=== PATIENT | female | born 1995 | race Caucasian/White ===

== ENCOUNTER 2021-08-08 20:26 | Observation (INO) | payer OTHER ==
[2021-08-08] MEDS ORDERED: NALOXONE 0.4 MG/ML 1 ML VIAL IV STA (20:28)
[2021-08-08] MEDS ORDERED: SODIUM CHLORIDE 0.9% 1,000 ML IV ONE (20:28)
[2021-08-08 20:34] VITALS: RESP 18; TEMP 98.5
[2021-08-08 20:36] LABS: Glucose,Whole Blood 91 mg/dL (75-99)
--- NOTE | 2021-08-08 20:47 | ED ---
General Adult HPI - General Chief complaint: Altered Mental Status Stated complaint: Overdose Time Seen by Provider: 08/08/21 20:28 Source: police, EMS Mode of arrival: EMS - History of Present Illness Initial comments: Patient presents to the ED by ambulance for evaluation. Per EMS, patient was found unresponsive outside of a liquor store. Patient has reportedly drank half a bottle of vodka. Per EMS, the patient had agonal respirations and pinpoint pupils, so they administered 2 mg of intranasal Narcan without any change in her condition. Per EMS, the patient was also given 2 mg of IV Narcan once an IV was established, and they report that the patient's condition improved with IV Narcan. Patient is alert and agitated on arrival to the ED. Patient is not answering any questions appropriately at this time. Patient will not tell me her name or if she took any drugs/medications today. - Related Data Allergies Allergy/AdvReac Type Severity Reaction Status Date / Time Unable to Assess Allergy Verified 08/08/21 20:34 Review of Systems ROS Statement: Those systems with pertinent positive or pertinent negative responses have been documented in the HPI. ROS Other: All systems not noted in ROS Statement are negative. Limitations: ROS unobtainable due to patients medical condition Past Medical History Past Medical History: Unable to Obtain History of Any Multi-Drug Resistant Organisms: Unobtainable Past Surgical History: Unable to Obtain Past Psychological History: Unable to Obtain Past Alcohol Use History: Unable to Obtain Past Drug Use History: Unable to Obtain General Exam Limitations: altered mental status General appearance: other (Patient is alert, but intoxicated in appearance) Head exam: Present: atraumatic, normocephalic Eye exam: Present: PERRL, EOMI, other (Bilateral conjunctival injection) ENT exam: Present: mucous membranes moist Neck exam: Present: other (Trachea is in midline). Absent: tenderness Respiratory exam: Present: normal lung sounds bilaterally. Absent: respiratory distress, wheezes, rales, rhonchi, stridor Cardiovascular Exam: Present: regular rate, normal rhythm, normal heart sounds, other (Normal radial pulses bilaterally) GI/Abdominal exam: Present: soft. Absent: distended, tenderness, guarding Extremities exam: Absent: tenderness, pedal edema Back exam: Present: normal inspection Neurological exam: Present: alert, other (Patient localizes the pain in all 4 extremities; patient is moving all 4 extremities spontaneously; PERRL) Psychiatric exam: Present: agitated Skin exam: Present: warm, dry, intact, normal color Course Vital Signs 08/08/21 20:27 Temperature 98.5 F Pulse Rate 98 Respiratory 18 Rate Blood Pressure 120/98 O2 Sat by Pulse 99 Oximetry - Reevaluation(s) Reevaluation #1: 08/08/21 21:55 Case, H&P, test results and ED/EMS management were discussed with Dr. Gomez. He accepts hospital admission. He has no further recommendations at this time. 08/08/21 21:55 Patient is currently sleeping, but easily arousable. Patient continues to be breathing comfortably in the ED. EKG Findings - EKG Comments: EKG Findings:: EKG is limited secondary to motion, normal sinus rhythm, ventricular rate of 98 bpm, no definite ectopy, normal GA and QRS intervals, normal QT interval, incomplete right bundle branch block, no definite ST or T- wave abnormality Medical Decision Making - Medical Decision Making Given the patient's very high alcohol level (466), possible concomitant drug overdose and altered mental status, will admit the patient to the hospital for observation and further management as needed. Dr. Gomez has accepted hospital admission. - Lab Data Result diagrams: 08/08/21 20:35 08/08/21 20:35 Lab Results 08/08/21 08/08/21 08/08/21 Range/Units 20:34 20:35 20:35 WBC 4.8 (3.8-10.6) k/uL RBC 4.69 (3.80-5.40) m/uL Hgb 14.6 (11.4-16.0) gm/dL Hct 44.4 (34.0-46.0) % MCV 94.6 (80.0-100.0) fL MCH 31.2 (25.0-35.0) pg MCHC 32.9 (31.0-37.0) g/dL RDW 15.0 (11.5-15.5) % Plt Count 275 (150-450) k/uL MPV 6.7 Neutrophils % 43 % Lymphocytes % 47 % Monocytes % 4 % Eosinophils % 2 % Basophils % 0 % Neutrophils # 2.1 (1.3-7.7) k/uL Lymphocytes # 2.3 (1.0-4.8) k/uL Monocytes # 0.2 (0-1.0) k/uL Eosinophils # 0.1 (0-0.7) k/uL Basophils # 0.0 (0-0.2) k/uL PT 9.9 (9.0-12.0) sec INR 0.9 (<1.2) APTT 21.9 L (22.0-30.0) sec Sodium (137-145) mmol/L Potassium (3.5-5.1) mmol/L Chloride (98-107) mmol/L Carbon Dioxide (22-30) mmol/L Anion Gap mmol/L BUN (7-17) mg/dL Creatinine (0.52-1.04) mg/dL Est GFR (CKD-EPI)AfAm (>60 ml/min/1.73 sqM) Est GFR (CKD-EPI)NonAf (>60 ml/min/1.73 sqM) Glucose (74-99) mg/dL POC Glucose (mg/dL) 91 (75-99) mg/dL POC Glu Manager Universal ID Judith Davis Calcium (8.4-10.2) mg/dL Total Bilirubin (0.2-1.3) mg/dL AST (14-36) U/L ALT (4-34) U/L Alkaline Phosphatase (38-126) U/L Troponin I (0.000-0.034) ng/mL Total Protein (6.3-8.2) g/dL Albumin (3.5-5.0) g/dL Urine Color Urine Appearance (Clear) Urine pH (5.0-8.0) Ur Specific [place] (1.001-1.035) Urine Protein (Negative) Urine Glucose (UA) (Negative) Urine Ketones (Negative) Urine Blood (Negative) Urine Nitrite (Negative) Urine Bilirubin (Negative) Urine Urobilinogen (<2.0) mg/dL Ur Leukocyte Esterase (Negative) Urine RBC (0-5) /hpf Urine WBC (0-5) /hpf Ur Squamous Epith Cells (0-4) /hpf Urine Bacteria (None) /hpf Hyaline Casts (0-2) /lpf Urine Mucus (None) /hpf Urine Opiates Screen (NotDetected) Ur Oxycodone Screen (NotDetected) Urine Methadone Screen (NotDetected) Ur Propoxyphene Screen (NotDetected) Ur Barbiturates Screen (NotDetected) U Tricyclic Antidepress (NotDetected) Ur Phencyclidine Scrn (NotDetected) Ur Amphetamines Screen (NotDetected) U Methamphetamines Scrn (NotDetected) U Benzodiazepines Scrn (NotDetected) Urine Cocaine Screen (NotDetected) U Marijuana (THC) Screen (NotDetected) Serum Alcohol mg/dL 08/08/21 08/08/21 08/08/21 Range/Units 20:35 20:35 20:47 WBC (3.8-10.6) k/uL RBC (3.80-5.40) m/uL Hgb (11.4-16.0) gm/dL Hct (34.0-46.0) % MCV (80.0-100.0) fL MCH (25.0-35.0) pg MCHC (31.0-37.0) g/dL RDW (11.5-15.5) % Plt Count (150-450) k/uL MPV Neutrophils % % Lymphocytes % % Monocytes % % Eosinophils % % Basophils % % Neutrophils # (1.3-7.7) k/uL Lymphocytes # (1.0-4.8) k/uL Monocytes # (0-1.0) k/uL Eosinophils # (0-0.7) k/uL Basophils # (0-0.2) k/uL PT (9.0-12.0) sec INR (<1.2) APTT (22.0-30.0) sec Sodium 143 (137-145) mmol/L Potassium 3.9 (3.5-5.1) mmol/L Chloride 105 (98-107) mmol/L Carbon Dioxide 28 (22-30) mmol/L Anion Gap 10 mmol/L BUN 12 (7-17) mg/dL Creatinine 0.76 (0.52-1.04) mg/dL Est GFR (CKD-EPI)AfAm >90 (>60 ml/min/1.73 sqM) Est GFR (CKD-EPI)NonAf >90 (>60 ml/min/1.73 sqM) Glucose 99 (74-99) mg/dL POC Glucose (mg/dL) (75-99) mg/dL POC Glu Manager Universal ID Calcium 8.5 (8.4-10.2) mg/dL Total Bilirubin 0.4 (0.2-1.3) mg/dL AST 141 H (14-36) U/L ALT 147 H (4-34) U/L Alkaline Phosphatase 81 (38-126) U/L Troponin I <0.012 (0.000-0.034) ng/mL Total Protein 7.5 (6.3-8.2) g/dL Albumin 4.3 (3.5-5.0) g/dL Urine Color Yellow Urine Appearance Cloudy H (Clear) Urine pH 5.5 (5.0-8.0) Ur Specific [place] 1.017 (1.001-1.035) Urine Protein Trace H (Negative) Urine Glucose (UA) Negative (Negative) Urine Ketones Trace H (Negative) Urine Blood Negative (Negative) Urine Nitrite Positive H (Negative) Urine Bilirubin Negative (Negative) Urine Urobilinogen <2.0 (<2.0) mg/dL Ur Leukocyte Esterase Small H (Negative) Urine RBC 1 (0-5) /hpf Urine WBC 3 (0-5) /hpf Ur Squamous Epith Cells 4 (0-4) /hpf Urine Bacteria Rare H (None) /hpf Hyaline Casts 9 H (0-2) /lpf Urine Mucus Few H (None) /hpf Urine Opiates Screen Not Detected (NotDetected) Ur Oxycodone Screen Not Detected (NotDetected) Urine Methadone Screen Not Detected (NotDetected) Ur Propoxyphene Screen Not Detected (NotDetected) Ur Barbiturates Screen Not Detected (NotDetected) U Tricyclic Antidepress Not Detected (NotDetected) Ur Phencyclidine Scrn Not Detected (NotDetected) Ur Amphetamines Screen Not Detected (NotDetected) U Methamphetamines Scrn Not Detected (NotDetected) U Benzodiazepines Scrn Not Detected (NotDetected) Urine Cocaine Screen Not Detected (NotDetected) U Marijuana (THC) Screen Detected H (NotDetected) Serum Alcohol 466 H* mg/dL - Radiology Data Chest x-ray: Normal chest. Disposition Clinical Impression: Altered mental status, Alcohol intoxication Disposition: ADMITTED IP TO THIS HOSP Condition: Stable Is patient prescribed a controlled substance at d/c from ED?: No Referrals: None,Stated [Primary Care Provider] - 1-2 days Time of Disposition: 21:57
[2021-08-08 20:55] LABS: Basophils % (A) 0 %; Eosinophils # (A) 0.1 k/uL (0-0.7); Eosinophils % (A) 2 %; HCT 44.4 % (34.0-46.0); HGB 14.6 gm/dL (11.4-16.0); Lymphocytes # (A) 2.3 k/uL (1.0-4.8); Lymphocytes % (A) 47 %; MCH 31.2 pg (25.0-35.0); MCHC 32.9 g/dL (31.0-37.0); MCV 94.6 fL (80.0-100.0); Mean Platelet Volume 6.7; Monocytes # (A) 0.2 k/uL (0-1.0); Monocytes % (A) 4 %; Neutrophils # (A) 2.1 k/uL (1.3-7.7); Neutrophils % (A) 43 %; Platelet Count 275 k/uL (150-450); RBC 4.69 m/uL (3.80-5.40); WBC 4.8 k/uL (3.8-10.6)
[2021-08-08 21:00] LABS: Appearance,Urine Cloudy (Clear); Bacteria,Urine Rare /hpf; Bilirubin,Urine Negative (Negative); Blood,Urine Negative (Negative); Color,Urine Yellow; Glucose,Urine (UA) Negative (Negative); Hyaline Casts,Urine 9 /lpf (0-2); Ketones,Urine Trace (Negative); Leukocyte Esterase,Urine Small (Negative); Mucus,Urine Few /hpf; Nitrite,Urine Positive (Negative); PH, Urine 5.5 (5.0-8.0); Protein,Urine Trace (Negative); RBC,Urine 1 /hpf (0-5); Specific Gravity,Urine 1.017 (1.001-1.035); Squamous Epithelial Cell,Urine 4 /hpf (0-4); Urobilinogen,Urine <2.0 mg/dL (<2.0); WBC,Urine 3 /hpf (0-5)
[2021-08-08 21:06] LABS: ALT 147 U/L (4-34); AST 141 U/L (14-36); African American GFR (CKD) >90 (>60 ml/min/1.73 sqM); Albumin 4.3 g/dL (3.5-5.0); Alkaline Phosphatase 81 U/L (38-126); Anion Gap 10 mmol/L; Blood Urea Nitrogen 12 mg/dL (7-17); Calcium 8.5 mg/dL (8.4-10.2); Carbon Dioxide 28 mmol/L (22-30); Chloride 105 mmol/L (98-107); Glucose 99 mg/dL (74-99); Non-African American GFR(CKD) >90 (>60 ml/min/1.73 sqM); Potassium 3.9 mmol/L (3.5-5.1); Sodium 143 mmol/L (137-145); Total Bilirubin 0.4 mg/dL (0.2-1.3); Total Protein 7.5 g/dL (6.3-8.2)
[2021-08-08 21:11] LABS: Amphetamine Screen,Urine Not Detected (NotDetected); Barbiturate Screen,Urine Not Detected (NotDetected); Benzodiazepines Screen,Urine Not Detected (NotDetected); Cocaine Screen,Urine Not Detected (NotDetected); Methadone Screen, Urine Not Detected (NotDetected); Opiate Screen,Urine Not Detected (NotDetected); Oxycodone Screen, Urine Not Detected (NotDetected); Phencyclidine Screen,Urine Not Detected (NotDetected); Tricyclic Antidepressant,Urine Not Detected (NotDetected); Urn Cannabinoid Scrn Detected (NotDetected)
--- NOTE | 2021-08-08 21:12 | XR ---
EXAMINATION TYPE: XR chest 1V portable DATE OF EXAM: 08/08/2021 COMPARISON: NONE HISTORY: Altered mental status TECHNIQUE: Single view FINDINGS: Heart and mediastinum are normal. Lungs are clear. Diaphragm is normal. Bony thorax appears normal. There is no pleural effusion or pneumothorax. IMPRESSION: Normal chest.
[2021-08-08 21:16] LABS: INR 0.9 (<1.2); Partial Thromboplastin Time 21.9 sec (22.0-30.0); Prothrombin Time 9.9 sec (9.0-12.0)
[2021-08-08 21:23] LABS: Alcohol 466 mg/dL
[2021-08-08 21:57] LABS: HCG,Qualitative Serum Not Detected
[2021-08-08] MEDS ORDERED: ONDANSETRON 4 MG/2 ML VIAL IVP PRN (21:58)
[2021-08-08] MEDS ORDERED: SODIUM CHLORIDE 0.9% 1,000 ML IV SCH (22:00)
[2021-08-08] MEDS ORDERED: THIAMINE 100 MG/ML 2 ML VIAL IM ONE (23:29)
[2021-08-08] MEDS ORDERED: LORazepam 2 MG/ML INJ IV PRN ×3 (23:29)
[2021-08-09 00:14] VITALS: BP 126/89; PULSE 92
[2021-08-09] MEDS ORDERED: THIAMINE 100 MG TAB PO SCH (07:30)
== END 2021-08-09 00:50 | disposition left against medical advice (07) ==
LOC: EDBD → EC 20:26 → 5NMEDONC 21:58
PROVIDERS: ADMIT Internal Medicine; ATTEND Internal Medicine
DX: F10.129 Alcohol abuse with intoxication, unspecified (principal); Y90.8 Blood alcohol level of 240 mg/100 ml or more; Z53.29 Procedure and treatment not carried out because of patient's decision for other reasons; Z20.822 Contact with and (suspected) exposure to COVID-19; I45.19 Other right bundle-branch block; Z71.41 Alcohol abuse counseling and surveillance of alcoholic; Z71.51 Drug abuse counseling and surveillance of drug abuser
CPT/HCPCS: 99285; 36415; 93005; 80053; 84484; 85025; 85610; 85730; 81001; 84703; 80306; 80320; 87635; 71045; G0378 ×2

== ENCOUNTER 2022-05-06 19:40 | Inpatient (IN) | payer MEDICAID, OTHER ==
[2022-05-06] MEDS ORDERED: TOPICAL SKIN ADHESIVE 1 EACH AMP TOPICAL ONE (19:57)
[2022-05-06] MEDS ORDERED: LIDOCAINE/EPINEPHR/TETRACAINE 5 ML BOTTLE TOPICAL ONE (19:57)
[2022-05-06] MEDS ORDERED: DIPH,PERTUS(ACELL)TETVAC-LF 0.5 ML VIAL IM ONE (19:57)
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
[2022-05-06 20:35] LABS: Amphetamine Screen,Urine Not Detected (NotDetected); Barbiturate Screen,Urine Not Detected (NotDetected); Benzodiazepines Screen,Urine Not Detected (NotDetected); Cocaine Screen,Urine Not Detected (NotDetected); Methadone Screen, Urine Not Detected (NotDetected); Opiate Screen,Urine Not Detected (NotDetected); Oxycodone Screen, Urine Not Detected (NotDetected); Phencyclidine Screen,Urine Not Detected (NotDetected); Tricyclic Antidepressant,Urine Not Detected (NotDetected); Urn Cannabinoid Scrn Detected (NotDetected)
[2022-05-07] MEDS ORDERED: ACETAMINOPHEN TAB 325 MG TAB PO PRN (06:16)
[2022-05-07] MEDS ORDERED: MAGNESIUM HYDROXIDE 2,400 MG/10 ML CUP PO PRN (06:16)
[2022-05-07] MEDS ORDERED: LORazepam 1 MG TAB PO PRN ×2 (06:16)
[2022-05-07] MEDS ORDERED: HALOPERIDOL LACTATE 5 MG/ML 1 ML VIAL IM PRN (06:16)
[2022-05-07] MEDS ORDERED: MAG HYDROX/AL HYDROX/SIMETH 355 ML BOTTLE PO PRN (06:16)
[2022-05-07] MEDS ORDERED: haloperidoL 5 MG TAB PO PRN (06:27)
[2022-05-07] MEDS ORDERED: hydrOXYzine pamoate 25 MG CAP PO PRN (06:28)
[2022-05-07] MEDS ORDERED: hydrOXYzine HCL 50 MG/ML 1 ML VIAL IM PRN (06:28)
[2022-05-07 06:58] LABS: Appearance,Urine Clear (Clear); Bilirubin,Urine Negative (Negative); Blood,Urine Negative (Negative); Color,Urine Light Yellow; Glucose,Urine (UA) Negative (Negative); Ketones,Urine Negative (Negative); Leukocyte Esterase,Urine Small (Negative); Mucus,Urine Rare /hpf; Nitrite,Urine Negative (Negative); Protein,Urine Negative (Negative); RBC,Urine 1 /hpf (0-5); Squamous Epithelial Cell,Urine 4 /hpf (0-4); Urobilinogen,Urine <2.0 mg/dL (<2.0); WBC,Urine 2 /hpf (0-5)
[2022-05-07 07:09] VITALS: RESP 18; TEMP 98.5
[2022-05-07] MEDS: chlordiazePOXIDE 25 MG CAP PO SCH ×2 (08:50→16:00)
[2022-05-07 08:54] VITALS: PULSE 120
[2022-05-07] MEDS ORDERED: VALPROIC ACID ORAL SOLN 250 MG/5 ML CUP PO SCH (09:00)
[2022-05-07] MEDS ORDERED: FOLIC ACID 1 MG TAB PO SCH (09:00)
[2022-05-07] MEDS ORDERED: MULTIVITAMINS, THERA 1 EACH TAB PO SCH (09:00)
[2022-05-07] MEDS ORDERED: THIAMINE 100 MG TAB PO SCH (09:00)
[2022-05-07] MEDS ORDERED: diazePAM 5 MG TAB PO SCH (09:00)
[2022-05-07] MEDS ORDERED: busPIRone HCl 10 MG TAB PO SCH (09:00)
[2022-05-07] MEDS ORDERED: FLUoxetine HCL 20 MG CAP PO SCH (12:45)
[2022-05-07 17:22] VITALS: BP 139/88
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
--- NOTE | 2022-05-07 19:38 | P.DS ---
Providers Date of admission: 05/07/22 06:12 Expected date of discharge: 05/07/22 Attending physician: Yovani Lyons MD Consults: 05/07/22 06:16 Consult Physician Routine Consulting Provider: Hardy Schuster Consult Reason/Comments: For H & P for Medical Follow Up Do you want consulting provider notified?: Yes, Notify in am Primary care physician: Stated None - Discharge Diagnosis(es) (1) Major depress dis, severe Status: Acute Hospital Course: Patient presented to psychiatric unit from the ED on 05/07/22 due to a suicide attempt via laceration of her left forearm. It had been glued while in the ED. She was seen for an intake on 05/07/22. She was resumed on her home medications of BuSpar, Prozac, and trazodone. She was discontinued from the Depakote. She was to continue psychiatric hospitalization for further psychotropic medication stabilization. Discussed needing DBT. She signed a formal voluntary form. Later in the afternoon on 05/07/22, patient's laceration spontaneously opened. Nursing staff needed to apply constant pressure with dressing to prevent further bleeding. Patient needed to be discharged to the ED for care of her laceration. Assessment: Major depressive disorder, recurrent, severe without psychotic features Alcohol use disorder Borderline Personality disorder Health Concerns: Laceration of L forearm Patient Condition at Discharge: Stable Plan - Discharge Summary New Discharge Prescriptions: No Action traZODone HCL 100 mg PO HS PRN PRN Reason: Insomnia FLUoxetine HCL 40 mg PO DAILY busPIRone HCL [Buspar] 30 - 60 mg PO BID PRN PRN Reason: Anxiety Discharge Medication List FLUoxetine HCL 40 mg PO DAILY 08/08/21 [History] traZODone HCL 100 mg PO HS PRN 08/08/21 [History] busPIRone HCL [Buspar] 30 - 60 mg PO BID PRN 05/07/22 [History] Follow up Appointment(s)/Referral(s): None,Stated [Primary Care Provider] - 1-2 days Discharge Disposition: OTHER INSTITUTION NOT DEFINED
== END 2022-05-07 17:15 | disposition other institution (70) | DRG 885 ==
LOC: EC 19:40 → 3MHU 05-07 06:12
PROVIDERS: ADMIT Psychiatry & Neurology Psychiatry; ATTEND Psychiatry & Neurology Psychiatry
PROC: 0HQEXZZ Repair Left Lower Arm Skin, External Approach (ICD-10-PCS; principal; 2022-05-06)
DX: F33.2 Major depressive disorder, recurrent severe without psychotic features (principal); R45.851 Suicidal ideations; Z20.822 Contact with and (suspected) exposure to COVID-19; S61.512A Laceration without foreign body of left wrist, initial encounter; M32.9 Systemic lupus erythematosus, unspecified; F10.229 Alcohol dependence with intoxication, unspecified; F17.210 Nicotine dependence, cigarettes, uncomplicated; Z71.6 Tobacco abuse counseling; F41.9 Anxiety disorder, unspecified; F60.3 Borderline personality disorder; Z79.899 Other long term (current) drug therapy; Z91.14 Patient's other noncompliance with medication regimen; Z91.52 Personal history of nonsuicidal self-harm; Z88.8 Allergy status to other drugs, medicaments and biological substances; Z88.2 Allergy status to sulfonamides; Z71.41 Alcohol abuse counseling and surveillance of alcoholic
CPT/HCPCS: 12002; 80164; 80306; 81001; 81025; 82075; 87635; 90471; 90715; 99285

== ENCOUNTER 2022-05-07 17:25 | Inpatient (IN) | payer MEDICAID, OTHER ==
[2022-05-07 17:51] LABS: Basophils % (A) 0 %; Eosinophils # (A) 0.1 k/uL (0-0.7); Eosinophils % (A) 1 %; HCT 37.3 % (34.0-46.0); HGB 12.9 gm/dL (11.4-16.0); Lymphocytes # (A) 1.5 k/uL (1.0-4.8); Lymphocytes % (A) 21 %; MCH 32.6 pg (25.0-35.0); MCHC 34.7 g/dL (31.0-37.0); MCV 94.1 fL (80.0-100.0); Mean Platelet Volume 7.9; Monocytes # (A) 0.4 k/uL (0-1.0); Monocytes % (A) 6 %; Neutrophils # (A) 4.8 k/uL (1.3-7.7); Neutrophils % (A) 68 %; Platelet Count 324 k/uL (150-450); RBC 3.96 m/uL (3.80-5.40); RDW 12.4 % (11.5-15.5)
--- NOTE | 2022-05-07 18:05 | ED ---
General Adult HPI - General Chief complaint: Wound/Laceration Stated complaint: lt wrist laceration Time Seen by Provider: 05/07/22 17:27 Source: patient, RN/MD Mode of arrival: wheelchair Limitations: no limitations - History of Present Illness Initial comments: Patient was sent to the ED from the psychiatric unit for evaluation after her left wrist wound opened up and began to bleed. Patient was admitted to the psychiatric unit yesterday after presenting to the ED with suicidal ideation. Patient states that she cut her left wrist with a razor blade at about 6 PM yesterday, and her boyfriend made her come to the ED at that time. Patient's left wrist wound was closed with skin glue by the ED PA who saw the patient yesterday, and she was admitted to the psychiatric unit. Patient states that about 10 minutes prior to ED presentation today, her wound spontaneously began to bleed. Patient reports a steady stream of blood, and she denies pulsatile bleeding. Pressure was immediately applied by psychiatric unit staff, and patient was transported to the ED with pressure being applied. Patient denies anticoagulation medication use. Patient denies repeat trauma or injury to her left wrist. Patient denies having any pain, chest pain or pressure, dyspnea, dizziness, nausea or vomiting, focal neuro deficit, or any other symptoms or complaints. Patient states that her tetanus was updated in the ED yesterday. - Related Data Home Medications Medication Instructions Recorded Confirmed FLUoxetine HCL 40 mg PO DAILY 08/08/21 05/07/22 traZODone HCL 100 mg PO HS PRN 08/08/21 05/07/22 busPIRone HCL [Buspar] 30 - 60 mg PO BID PRN 05/07/22 05/07/22 Allergies Allergy/AdvReac Type Severity Reaction Status Date / Time lamotrigine [From Lamictal] Allergy Astorga-Yannick Verified 05/07/22 18:22 Syndrome lithium Allergy Astorga-Yannick Verified 05/07/22 18:22 Syndrome Sulfa (Sulfonamide Allergy Astorga-Yannick Verified 05/07/22 18:22 Antibiotics) Syndrome Review of Systems ROS Statement: Those systems with pertinent positive or pertinent negative responses have been documented in the HPI. ROS Other: All systems not noted in ROS Statement are negative. Past Medical History Past Medical History: Unable to Obtain Additional Past Medical History / Comment(s): lupus History of Any Multi-Drug Resistant Organisms: Unobtainable Past Surgical History: No Surgical Hx Reported Past Psychological History: Anxiety, Depression Smoking Status: Light tobacco smoker Past Alcohol Use History: Unable to Obtain Past Drug Use History: Unable to Obtain General Exam Limitations: no limitations General appearance: alert, in no apparent distress Head exam: Present: atraumatic, normocephalic Eye exam: Present: normal appearance, EOMI ENT exam: Present: mucous membranes moist Neck exam: Present: other (Trachea is in midline) Respiratory exam: Present: normal lung sounds bilaterally. Absent: respiratory distress, wheezes, rales, rhonchi, stridor Cardiovascular Exam: Present: regular rate, normal rhythm, normal heart sounds, other (Normal radial pulses bilaterally) GI/Abdominal exam: Present: soft. Absent: distended, tenderness, guarding Extremities exam: Present: full ROM, other (A 472, linear, superficial wound is noted to the volar aspect of the patient's left wrist; the lateral portion of this wound is noted to have a nonpulsatile, steady stream of blood when pressure is removed) Neurological exam: Present: alert, oriented X3. Absent: motor sensory deficit Psychiatric exam: Present: anxious Skin exam: Present: warm, dry, normal color Course Vital Signs 05/07/22 05/07/22 17:57 17:59 Temperature 97.7 F Pulse Rate 82 88 Respiratory 16 18 Rate Blood Pressure 108/98 135/96 O2 Sat by Pulse 98 98 Oximetry Procedures - Laceration Laceration #1 Consent Obtained: verbal consent Indication: laceration Site: other (Left wrist) Size (cm): 4 Description: linear Depth: simple, single layer Type of Sutures: nylon Size of Sutures: 3-0 Number of Sutures: 1 Technique: other (A single figure 8 suture was placed for hemostasis only) Patient Tolerated Procedure: well, no complications Medical Decision Making - Medical Decision Making Patient's bleeding resolved with placement of figure 8 suture in the ED. Patient's wound was observed for quite some time in the ED without any rebleeding. A pressure dressing was applied by ED RN. Given that the patient's wound occurred almost 24 hours ago, no other primary closure of the patient's superficial wound was performed. Patient has been hemodynamically stable while in the ED. Patient's initial blood draw coags were elevated, so a repeat coags were ordered. Patient's repeat coags are within normal limits. I suspect that the patient's initial levels were likely due to lab error. Patient has been medically cleared and will be readmitted to the psychiatric unit. - Lab Data Result diagrams: 05/07/22 17:34 05/07/22 20:11 Lab Results 05/07/22 05/07/22 05/07/22 Range/Units 17:34 17:57 20:11 WBC 7.0 (3.8-10.6) k/uL RBC 3.96 (3.80-5.40) m/uL Hgb 12.9 (11.4-16.0) gm/dL Hct 37.3 (34.0-46.0) % MCV 94.1 (80.0-100.0) fL MCH 32.6 (25.0-35.0) pg MCHC 34.7 (31.0-37.0) g/dL RDW 12.4 (11.5-15.5) % Plt Count 324 (150-450) k/uL MPV 7.9 Neutrophils % 68 % Lymphocytes % 21 % Monocytes % 6 % Eosinophils % 1 % Basophils % 0 % Neutrophils # 4.8 (1.3-7.7) k/uL Lymphocytes # 1.5 (1.0-4.8) k/uL Monocytes # 0.4 (0-1.0) k/uL Eosinophils # 0.1 (0-0.7) k/uL Basophils # 0.0 (0-0.2) k/uL PT 24.1 H 10.3 (9.0-12.0) sec INR 2.4 H 0.9 (<1.2) APTT 49.2 H (22.0-30.0) sec Sodium (137-145) mmol/L Potassium (3.5-5.1) mmol/L Chloride (98-107) mmol/L Carbon Dioxide (22-30) mmol/L Anion Gap mmol/L BUN (7-17) mg/dL Creatinine (0.52-1.04) mg/dL Est GFR (CKD-EPI)AfAm (>60 ml/min/1.73 sqM) Est GFR (CKD-EPI)NonAf (>60 ml/min/1.73 sqM) Glucose (74-99) mg/dL Calcium (8.4-10.2) mg/dL Total Bilirubin (0.2-1.3) mg/dL AST (14-36) U/L ALT (4-34) U/L Alkaline Phosphatase (38-126) U/L Total Protein (6.3-8.2) g/dL Albumin (3.5-5.0) g/dL HCG, Qual Acetaminophen ug/mL 05/07/22 Range/Units 20:11 WBC (3.8-10.6) k/uL RBC (3.80-5.40) m/uL Hgb (11.4-16.0) gm/dL Hct (34.0-46.0) % MCV (80.0-100.0) fL MCH (25.0-35.0) pg MCHC (31.0-37.0) g/dL RDW (11.5-15.5) % Plt Count (150-450) k/uL MPV Neutrophils % % Lymphocytes % % Monocytes % % Eosinophils % % Basophils % % Neutrophils # (1.3-7.7) k/uL Lymphocytes # (1.0-4.8) k/uL Monocytes # (0-1.0) k/uL Eosinophils # (0-0.7) k/uL Basophils # (0-0.2) k/uL PT (9.0-12.0) sec INR (<1.2) APTT (22.0-30.0) sec Sodium 134 L (137-145) mmol/L Potassium 3.5 (3.5-5.1) mmol/L Chloride 100 (98-107) mmol/L Carbon Dioxide 25 (22-30) mmol/L Anion Gap 9 mmol/L BUN 6 L (7-17) mg/dL Creatinine 0.52 (0.52-1.04) mg/dL Est GFR (CKD-EPI)AfAm >90 (>60 ml/min/1.73 sqM) Est GFR (CKD-EPI)NonAf >90 (>60 ml/min/1.73 sqM) Glucose 81 (74-99) mg/dL Calcium 8.8 (8.4-10.2) mg/dL Total Bilirubin 0.8 (0.2-1.3) mg/dL AST 93 H (14-36) U/L ALT 268 H (4-34) U/L Alkaline Phosphatase 80 (38-126) U/L Total Protein 6.5 (6.3-8.2) g/dL Albumin 4.3 (3.5-5.0) g/dL HCG, Qual Not Detected Acetaminophen <10.0 ug/mL Critical Care Time Critical Care Time: Yes Total Critical Care Time: 35 Disposition Clinical Impression: Laceration, Vascular injury of left arm Disposition: ADMITTED IP TO THIS HOSP Condition: Stable Is patient prescribed a controlled substance at d/c from ED?: No Time of Disposition: 21:23
--- NOTE | 2022-05-07 18:39 | P.DS ---
Providers Date of admission: 05/07/2022 Expected date of discharge: 05/07/22 Attending physician: Ty Brito DO Primary care physician: Stated None - Discharge Diagnosis(es) (1) Major depress dis, severe Current Visit: Yes Status: Acute Priority: High Hospital Course: Patient presented to psychiatric unit from the ED on 05/07/22 due to a suicide attempt via laceration of her left forearm. It had been glued while in the ED. She was seen for an intake on 05/07/22. She was resumed on her home medications of BuSpar, Prozac, and trazodone. She was discontinued from the Depakote. She was to continue psychiatric hospitalization for further psychotropic medication stabilization. Discussed needing DBT. She signed a formal voluntary form. Later in the afternoon on 05/07/22, patient's laceration spontaneously opened. Nursing staff needed to apply constant pressure with dressing to prevent further bleeding. Patient needed to be discharged to the ED for care of her laceration. Assessment: Major depressive disorder, recurrent, severe without psychotic features Alcohol use disorder Borderline Personality disorder Health Concerns: Laceration of L forearm Patient Condition at Discharge: Stable Plan - Discharge Summary New Discharge Prescriptions: Continue traZODone HCL 100 mg PO HS PRN PRN Reason: Insomnia FLUoxetine HCL 40 mg PO DAILY Discontinued Valproic Acid [Depakene] 250 mg PO TID No Action busPIRone HCL [Buspar] 30 - 60 mg PO BID PRN PRN Reason: Anxiety Discharge Medication List FLUoxetine HCL 40 mg PO DAILY 08/08/21 [History] traZODone HCL 100 mg PO HS PRN 08/08/21 [History] busPIRone HCL [Buspar] 30 - 60 mg PO BID PRN 05/07/22 [History] Follow up Appointment(s)/Referral(s): None,Stated [Primary Care Provider] - 1-2 days Discharge Disposition: OTHER INSTITUTION NOT DEFINED
[2022-05-07 19:30] LABS: INR 2.4 (<1.2); Partial Thromboplastin Time 49.2 sec (22.0-30.0); Prothrombin Time 24.1 sec (9.0-12.0)
[2022-05-07 20:39] LABS: ALT 268 U/L (4-34); AST 93 U/L (14-36); Acetaminophen <10.0 ug/mL; African American GFR (CKD) >90 (>60 ml/min/1.73 sqM); Albumin 4.3 g/dL (3.5-5.0); Alkaline Phosphatase 80 U/L (38-126); Anion Gap 9 mmol/L; Blood Urea Nitrogen 6 mg/dL (7-17); Calcium 8.8 mg/dL (8.4-10.2); Carbon Dioxide 25 mmol/L (22-30); Chloride 100 mmol/L (98-107); Glucose 81 mg/dL (74-99); Non-African American GFR(CKD) >90 (>60 ml/min/1.73 sqM); Potassium 3.5 mmol/L (3.5-5.1); Sodium 134 mmol/L (137-145); Total Bilirubin 0.8 mg/dL (0.2-1.3); Total Protein 6.5 g/dL (6.3-8.2)
[2022-05-07 20:44] LABS: INR 0.9 (<1.2); Prothrombin Time 10.3 sec (9.0-12.0)
[2022-05-07 20:47] LABS: HCG,Qualitative Serum Not Detected
[2022-05-07] MEDS ORDERED: ACETAMINOPHEN TAB 325 MG TAB PO PRN (21:21)
[2022-05-07] MEDS ORDERED: MAG HYDROX/AL HYDROX/SIMETH 355 ML BOTTLE PO PRN (21:21)
[2022-05-07] MEDS ORDERED: LORazepam 1 MG TAB PO PRN (21:21)
[2022-05-07] MEDS ORDERED: MAGNESIUM HYDROXIDE 2,400 MG/10 ML CUP PO PRN (21:21)
[2022-05-07] MEDS ORDERED: busPIRone HCl 10 MG TAB PO PRN (21:30)
[2022-05-07] MEDS ORDERED: diazePAM 5 MG TAB PO SCH (22:00)
[2022-05-07] MEDS: chlordiazePOXIDE 25 MG CAP PO SCH (22:00)
[2022-05-08 06:33] VITALS: RESP 16
[2022-05-08] MEDS: NICOTINE 14MG/24HR PATCH TRANSDERM SCH (08:46)
[2022-05-08] MEDS: MULTIVITAMINS, THERA 1 EACH TAB PO SCH (08:46)
[2022-05-08] MEDS: THIAMINE 100 MG TAB PO SCH (08:46)
[2022-05-08] MEDS: FLUoxetine HCL 20 MG CAP PO SCH (08:46)
[2022-05-08] MEDS: chlordiazePOXIDE 25 MG CAP PO SCH ×2 (08:46→21:29)
[2022-05-08] MEDS: FOLIC ACID 1 MG TAB PO SCH (08:46)
[2022-05-08] MEDS ORDERED: traZODone HCL 100 MG TAB PO PRN (12:35)
[2022-05-08] MEDS: ACAMPROSATE CALCIUM 333 MG TABLET.DR PO SCH ×2 (16:59→21:29)
[2022-05-08] MEDS ORDERED: busPIRone HCl 10 MG TAB PO PRN (17:22)
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
[2022-05-08] MEDS: busPIRone HCl 10 MG TAB PO SCH ×2 (18:44→21:30)
[2022-05-09] MEDS: busPIRone HCl 10 MG TAB PO SCH ×2 (08:33→20:38)
[2022-05-09] MEDS: THIAMINE 100 MG TAB PO SCH (08:33)
[2022-05-09] MEDS: FLUoxetine HCL 20 MG CAP PO SCH (08:34)
[2022-05-09] MEDS: FOLIC ACID 1 MG TAB PO SCH (08:34)
[2022-05-09] MEDS: ACAMPROSATE CALCIUM 333 MG TABLET.DR PO SCH ×3 (08:34→20:38)
[2022-05-09] MEDS: NICOTINE 14MG/24HR PATCH TRANSDERM SCH (08:35)
[2022-05-09] MEDS: chlordiazePOXIDE 25 MG CAP PO SCH (08:35)
[2022-05-09] MEDS: MULTIVITAMINS, THERA 1 EACH TAB PO SCH (08:37)
--- NOTE | 2022-05-09 10:51 | P.PN ---
Progress Note - Text Progress Note Date: 05/09/22 Interval History: Patient was seen wandering the hallways and was directable and agreeable to speak with handbook writer in the office. Currently, the patient is not reporting any suicidal or homicidal ideation, intention, and/or plan. She expresses embarrassment in regards to her actions and her self-injurious behavior. She remains future and goal oriented today. She denies any auditory or visual hallucinations. She reports no paranoia or other delusions. 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 She is in agreement to discontinue this medication as she provides no significant history of bipolar symptoms. The patient is primarily presenting with a history of cluster B personality disorder. The patient was able to discuss at length with this provider borderline personality disorder and engaged in mental visitation therapy. She is anticipated for discharge tomorrow. She is currently denying any withdrawal symptoms. Mental Status Exam: General Appearance: Patient appears to be stated age is alert, directable, and cooperative. Behavior: Patient is calmly seated without any agitated behavior. Speech: Patient's speech is fluent and nonpressured. Mood/Affect: Mood is improving mildly, affect is congruent and constricted. Suicidality/Homicidality: Patient denies having any suicidal or homicidal ideation intent or plan. Perceptions: Patient denies any visual hallucinations and denies any auditory hallucinations Though content/process: There is no evidence of any delusional thought content and thought process is linear and goal-directed. Memory and concentration: AOX3, grossly intact for the purposes of this session Judgment and insight: Improving mildly Vital Signs Temp 98.0 F 05/09/22 06:22 Pulse 104 H 05/09/22 06:22 Resp 16 05/09/22 06:22 BP 124/73 05/09/22 06:22 Pulse Ox 96 05/09/22 06:22 FiO2 Assessment Major depressive disorder, recurrent, severe without psychotic features Alcohol use disorder, severe Borderline personality disorder Plan: -Patient continues to meet criteria for inpatient psychiatric admission for symptom stabilization and safety. Patient has signed adult voluntary form and medication consent and was placed in patient's chart. -Medications: Resume Prozac 40 mg daily, trazodone 100 mg qHS, Buspar 30 mg BID Continue Campral 333 mg TID for alcohol abstinence Discontinue Librium. Anticipate discharge tomorrow. -When necessary Ativan and Haldol for agitation/aggression. -NRT - nicotine patch -SW on board for discharge planning. Encouraged the patient to participate in milieu.
[2022-05-09 22:23] LABS: Urine Alcohol Negative (Negative); Urine Barbiturate Negative (Negative); Urine Cocaine Negative (Negative); Urine Methadone Negative (Negative); Urine Opiates Negative (Negative); Urine Phencyclidine Negative (Negative)
--- NOTE | 2022-05-10 00:15 | CONS ---
CONSULTATION CHIEF COMPLAINT: Major depression with self-inflicted laceration of the left forearm. HISTORY OF PRESENT ILLNESS: This is a young lady presented with self-inflicted laceration of the left forearm and was admitted for depression. She was last seen in the office in December. REVIEW OF SYSTEMS: She denies any headaches, neurologic problems, change in vision or hearing, chest pain, cough, hypertension, abdominal pain, nausea, vomiting, diarrhea, urinary complaints, etc. Past medical history, family history, personal and social histories demonstrate an allergy to sulfa and Lomotil. When she had been in this summer, she was on Depakote, BuSpar, trazodone, Prozac, and vitamin D3. History is otherwise found in detail in her admitting summary. PHYSICAL EXAMINATION: VITAL SIGNS: Blood pressure is 118/74 with a pulse of 80, respirations of 19, and she is afebrile. GENERAL: She appeared to be slender, well developed, well nourished, in no acute distress. She was pleasant and cooperative. HEAD, EARS, EYES, NOSE, MOUTH, AND THROAT: Normal. CHEST: Clear. CARDIAC: Normal. ABDOMEN: Soft. EXTREMITIES: Normal except for the dressing on the left forearm. NEUROLOGIC: She is intact. She is admitted to the hospital with diagnosis of, 1. Major depression. 2. Self-inflicted laceration of left forearm. RECOMMENDATIONS: None at this time. MMODL / IJN: [id number] /
[2022-05-10 06:08] VITALS: BP 111/59; PULSE 80; TEMP 98.4
[2022-05-10] MEDS: THIAMINE 100 MG TAB PO SCH (07:50)
[2022-05-10] MEDS: FOLIC ACID 1 MG TAB PO SCH (07:50)
[2022-05-10] MEDS: ACAMPROSATE CALCIUM 333 MG TABLET.DR PO SCH (07:50)
[2022-05-10] MEDS: busPIRone HCl 10 MG TAB PO SCH (07:50)
[2022-05-10] MEDS: FLUoxetine HCL 20 MG CAP PO SCH (07:50)
[2022-05-10] MEDS: NICOTINE 14MG/24HR PATCH TRANSDERM SCH (07:50)
[2022-05-10] MEDS: MULTIVITAMINS, THERA 1 EACH TAB PO SCH (07:50)
--- NOTE | 2022-05-10 10:07 | P.DS ---
Providers Date of admission: 05/07/22 21:14 Expected date of discharge: 05/10/22 Attending physician: Yovani Lyons MD Consults: 05/07/22 22:22 Consult Physician Routine Consulting Provider: Hardy Schuster Consult Reason/Comments: H&P Do you want consulting provider notified?: Yes Primary care physician: Stated None - Discharge Diagnosis(es) (1) Major depressive disorder, recurrent, severe without psychotic features Status: Acute Priority: High (2) Alcohol use disorder Status: Chronic Priority: Medium (3) Borderline personality disorder Status: Chronic Priority: Medium Hospital Course: Admission HPI: Initial psychiatric evaluation was completed by Dr. Brito on 05/08/2022 who wrote: "Patient is a single, employed, 26-year-old [place] female who is presenting with suicidal attempt via cutting HPI: Patient was seen on 05/07/22 for an intake assessment. At the time, she was discontinued off of the Depakote and continued on home medications of Prozac, trazodone, and BuSpar. She had to be discharged to the ED for laceration repair. After receiving sutures, she was readmitted back to the inpatient psychiatric unit on 05/07/22 on a voluntary basis for suicide attempt via cutting. H&P from 05/07: Patient reports a long history of depression. She was on Prozac, trazodone, BuSpar and Depakote. Patient reports that 2 weeks ago she was told by work that she needs to be less sedated during her work time. As a result, she stopped taking all of her medications 2 weeks ago because she was worried about losing her job. During this time, she had a relapse on 05/06/22 on alcohol - drank 1 pint of vodka. She lives with her boyfriend and she was worried about his reaction if he found her drinking. She was afraid she would be asked to leave. She endorses fear of abandonment. As a result, she reports that she impulsively cut her L forearm in a suicide attempt. She subsequently called her boyfriend and requested him to take her to the hospital for care. Of note, patient's wound was glued while in the ED. She reports trouble sleeping without trazodone. She reports reduced appetite due to recent alcohol intake. Prior to being medicated, she says she had worse mood but this has improved with current medication regimen. Patient endorses symptoms of anxiety including having racing thoughts with pal pitations that cause her to have trouble sleeping. However, she denies symptoms consistent with victor manuel including periods of elevated energy or mood with poor sleep, talkativeness, indiscretion, grandiosity, and flight of ideas. Rather, patient endorses symptoms of borderline personality disorder including fear of abandonment, pattern of unstable relationships, identity disturbance, impulsivity that is self-damaging, recurrent suicidal gestures, affect instability, and feelings of emptiness. Denies AVH and symptoms of psychosis. She denies HI. Progress note for 05/08: Patient attended AA meeting and recalled hx of meeting people that later . This included a fiance who committed suicide. She continues to be depressed. She states that she would like to reconnect with her father but is afraid to do so. Later in the day, this provider spoke with the patient again. She states that she reached out to her father over the phone and was surprised that he told her "love you ". She reports experiencing significant guilt and shame for her alcohol use. We discussed this with motivational interviewing. She hopes to improve herself and is more future oriented. She continues to be compliant with medications and denies side effects. Discussed naltrexone and Campral for alcohol use. Given her elevated liver enzymes, discussed Campral and patient was agreeable to trying this today. She denies homicidal and suicidal ideation currently. Denies auditory and visual hallucinations. Prior history as gathered on 05/07/22: PSYCH HX: Previous psychiatrist: Denies Past tx: Prozac 40 mg daily, trazodone 100 mg qHS, Buspar 30 mg BID (finds these helpful). Depakote 250 mg TID (1 year and has not noticed benefit) started by PCP who she reports thought her moodiness was secondary to bipolar Seroquel - irritable [place], Lamictal - [facility] Hospitalizations: [facility] in [place] in 2020 NSSI: Cutting in teen years due to feeling overwhelmed. [place] it was a release of emotion. SA: Denies" Hospital course: Upon admission to the unit patient was initially calm and directable however minimized her suicide attempt. Patient was however directable and agreeable to commence treatment. Patient got along well with other patients on the unit and followed unit protocol. Patient was compliant with the medications and denied any side effects throughout hospital course. Patient was started on Prozac, trazodone, BuSpar, and Campral was to her regimen for alcohol cessation. Patient spoke of her stressors and engaged in therapy both group and individual. Patient was also seen by medical team for history and physical exam. Throughout the course of the hospitalization patient gradually improved with regards to her mood and became future oriented with improved insight and judgment. On the day of discharge patient denied any suicidal or homicidal ideations intent or plan denied any auditory or visual hallucinations. Patient endorsed wanting to live for her health and family. The patient denied any access to guns or weapons. Patient denied any paranoia and did not endorse any delusions. Patient does have a significant history of substance abuse however was counseled on abstainin g from all substances including alcohol and marijuana. Patient was offered however declined inpatient substance-abuse rehab. Patient was also counseled on the medications and need for regular compliance and was encouraged to follow-up with their outpatient appointment for mental health and also for primary care. Prior to discharge a family meeting will be arranged by social science research assistant to answer any questions and ensure safety upon discharge. Mental status exam: General Appearance: Patient appears to be stated age is alert, pleasant, and cooperative. Patient is in no acute distress and has fair hygiene and grooming Behavior: Patient is calmly seated without any agitated behavior. Speech: Patient's speech is fluent and nonpressured. Mood/Affect: Patient reports their mood is "much better", affect is congruent and euthymic. Suicidality/Homicidality: Patient denies having any suicidal or homicidal ideation intent or plan. Perceptions: Patient denies any auditory or visual hallucinations. Though content/process: There is no evidence of any delusional thought content and thought process is linear and goal-directed. The patient is future oriented. Memory and concentration: AOX3, grossly intact for the purposes of this session. Can spell "WORLD" backwards correctly. Judgment and insight: Improved with guarded prognosis Impression: Major depressive disorder, recurrent, severe without psychotic features Alcohol use disorder, severe Borderline personality disorder Plan: -Continue with discharge today as patient has improved and stabilized psychiatrically and is not currently an imminent threat to herself and/or others. Patient will remain at chronically elevated risk due to her substance abuse -Continue medications: Trazodone 100 mg by mouth at bedtime when necessary for insomnia BuSpar 30 mg by mouth twice a day for anxiety Prozac 40 mg by mouth daily for depression Campral 133 mg by mouth 3 times a day for alcohol cessation -Patient was counseled on the need for medication compliance and appropriate follow-up at mental health and also primary care for medical issues. Patient verbalized understanding and agreed. -Social work to arrange for and conduct family meeting to ensure safety upon discharge and answer any questions/concerns. Social work also to arrange for patients follow up appointments with [facility] for psychiatric care along with follow up with primary care provider. -Patient counseled on abstaining from recreational drugs and marijuana and alcohol. Was informed/educated on the adverse effects on their physical and mental health. Patient verbally agreed and understood. Patient was offered substance abuse treatment however declined at this time. -Patient was instructed to return to the hospital or seek immediate medical care if their psychiatric or medical symptoms do worsen or reoccur. -Psychoeducation and supportive therapy provided to patient. Risks and benefits of pharmacological treatment versus the risks and benefits of nontreatment weight and discussed. Informed consent discussion held. Common side effects of psychotropics discussed such as, but not limited to headache, GI disturbance, sexual dysfunction, movement disorders, sedation, and orthostatic hypotension. Life threatening and blackbox warnings of prescribed medications also discussed. Potential risks of operating a vehicle or heavy machinery discussed with matt roberts at length. Advised on importance of compliance and a reliable and responsible manner. Patient advised to review FDA consumer labeling of all medications prior to taking. Patient verbalized understanding of potential risks, and agrees with current treatment plan. Patient advised to medically contact physician/emergency personnel if any acute changes in condition occur. Vital Signs Temp 98.4 F 05/10/22 06:07 Pulse 80 05/10/22 06:07 Resp 16 05/10/22 06:07 BP 111/59 05/10/22 06:07 Pulse Ox 99 05/10/22 06:07 FiO2 Laboratory Results WBC 7.0 k/uL (3.8-10.6) 05/07/22 17:34 RBC 3.96 m/uL (3.80-5.40) 05/07/22 17:34 Hgb 12.9 gm/dL (11.4-16.0) 05/07/22 17:34 Hct 37.3 % (34.0-46.0) 05/07/22 17:34 MCV 94.1 fL (80.0-100.0) 05/07/22 17:34 MCH 32.6 pg (25.0-35.0) 05/07/22 17:34 MCHC 34.7 g/dL (31.0-37.0) 05/07/22 17:34 RDW 12.4 % (11.5-15.5) 05/07/22 17:34 Plt Count 324 k/uL (150-450) 05/07/22 17:34 MPV 7.9 05/07/22 17:34 Neutrophils % 68 % 05/07/22 17:34 Lymphocytes % 21 % 05/07/22 17:34 Monocytes % 6 % 05/07/22 17:34 Eosinophils % 1 % 05/07/22 17:34 Basophils % 0 % 05/07/22 17:34 Neutrophils # 4.8 k/uL (1.3-7.7) 05/07/22 17:34 Lymphocytes # 1.5 k/uL (1.0-4.8) 05/07/22 17:34 Monocytes # 0.4 k/uL (0-1.0) 05/07/22 17:34 Eosinophils # 0.1 k/uL (0-0.7) 05/07/22 17:34 Basophils # 0.0 k/uL (0-0.2) 05/07/22 17:34 PT 10.3 sec (9.0-12.0) 05/07/22 20:11 INR 0.9 (<1.2) 05/07/22 20:11 APTT 49.2 sec (22.0-30.0) H 05/07/22 17:57 Sodium 134 mmol/L (137-145) L 05/07/22 20:11 Potassium 3.5 mmol/L (3.5-5.1) 05/07/22 20:11 Chloride 100 mmol/L (98-107) 05/07/22 20:11 Carbon Dioxide 25 mmol/L (22-30) 05/07/22 20:11 Anion Gap 9 mmol/L 05/07/22 20:11 BUN 6 mg/dL (7-17) L 05/07/22 20:11 Creatinine 0.52 mg/dL (0.52-1.04) 05/07/22 20:11 Est GFR (CKD-EPI)AfAm >90 (>60 ml/min/1.73 sqM) 05/07/22 20:11 Est GFR (CKD-EPI)NonAf >90 (>60 ml/min/1.73 sqM) 05/07/22 20:11 Glucose 81 mg/dL (74-99) 05/07/22 20:11 Calcium 8.8 mg/dL (8.4-10.2) 05/07/22 20:11 Total Bilirubin 0.8 mg/dL (0.2-1.3) 05/07/22 20:11 AST 93 U/L (14-36) H 05/07/22 20:11 ALT 268 U/L (4-34) H 05/07/22 20:11 Alkaline Phosphatase 80 U/L (38-126) 05/07/22 20:11 Total Protein 6.5 g/dL (6.3-8.2) 05/07/22 20:11 Albumin 4.3 g/dL (3.5-5.0) 05/07/22 20:11 HCG, Qual Not Detected 05/07/22 20:11 Urine Opiates Screen Negative (Negative) 05/09/22 Unknown Urine Methadone Screen Negative (Negative) 05/09/22 Unknown Ur Propoxyphene Screen Negative (Negative) 05/09/22 Unknown Acetaminophen <10.0 ug/mL 05/07/22 20:11 Urine Barbiturates Negative (Negative) 05/09/22 Unknown Ur Phencyclidine Scrn Negative (Negative) 05/09/22 Unknown Ur Amphetamine Screen Negative (Negative) 05/09/22 Unknown U Benzodiazepines Scrn Positive (Negative) A 05/09/22 Unknown Urine Cocaine Screen Negative (Negative) 05/09/22 Unknown U Cannabinoids Screen Positive (Negative) A 05/09/22 Unknown Urine Alcohol Negative (Negative) 05/09/22 Unknown Allergies Allergy/AdvReac Type Severity Reaction Status Date / Time lamotrigine [From Lamictal] Allergy Astorga-Yannick Verified 05/07/22 18:22 Syndrome lithium Allergy Astorga-Yannick Verified 05/07/22 18:22 Syndrome Sulfa (Sulfonamide Allergy Astorga-Yannick Verified 05/07/22 18:22 Antibiotics) Syndrome Assessment: Major depressive disorder, recurrent, severe without psychotic features Alcohol use disorder Borderline Personality disorder Avoid the use of street drugs and alcohol. Take all prescriptions as prescribed. When you are in need of refills on your medications, please contact your medical provider and/or outpatient psychiatrist to have this done. Please go to scheduled outpatient appointment for aftercare treatment. If symptoms return or become worse, call the crisis line at and/or go to the nearest emergency room for evaluation. Health Concerns: Laceration of L forearm Patient Condition at Discharge: Stable Plan - Discharge Summary Discharge Rx Participant: Yes New Discharge Prescriptions: New traZODone HCL [Desyrel] 100 mg PO HS PRN 30 Days tab PRN Reason: Insomnia busPIRone HCl [Buspar] 30 mg PO BID 30 Days tab Acamprosate Calcium [Campral] 333 mg PO TID 30 Days tab Nicotine 14Mg/24Hr Patch [Habitrol] 1 patch TRANSDERM DAILY 30 Days patch Continue FLUoxetine HCL 40 mg PO DAILY Discontinued traZODone HCL 100 mg PO HS PRN PRN Reason: Insomnia busPIRone HCL [Buspar] 30 - 60 mg PO BID PRN PRN Reason: Anxiety Valproic Acid [Depakene] 250 mg PO TID Discharge Medication List FLUoxetine HCL 40 mg PO DAILY 08/08/21 [History] Acamprosate Calcium [Campral] 333 mg PO TID 30 Days tab 05/09/22 [Rx] Nicotine 14Mg/24Hr Patch [Habitrol] 1 patch TRANSDERM DAILY 30 Days patch 05/09/22 [Rx] busPIRone HCl [Buspar] 30 mg PO BID 30 Days tab 05/09/22 [Rx] traZODone HCL [Desyrel] 100 mg PO HS PRN 30 Days tab 05/09/22 [Rx] Follow up Appointment(s)/Referral(s): [facility] [Outside] - 05/17/22 2:00 pm [facility] [NON-STAFF] - 1 Week Patient Instructions/Handouts: Mood Disorders (DC), Depression (DC), Abuse of Alcohol (DC), Borderline Personality Disorder (DC), Suicide Prevention (DC) Activity/Diet/Wound Care/Special Instructions: Avoid the use of street drugs and alcohol. Take all prescriptions as prescribed. When you are in need of refills on your medications, please contact your medical provider and/or outpatient psychiatrist to have this done. Please go to scheduled outpatient appointment for aftercare treatment. If symptoms return or become worse, call the crisis line at and/or go to the nearest emergency room for evaluation. Discharge Disposition: HOME SELF-CARE
== END 2022-05-10 08:10 | disposition home or self-care (01) | DRG 885 ==
LOC: EC 17:25 → 3MHU 21:14
PROVIDERS: ADMIT Psychiatry & Neurology Psychiatry; ATTEND Psychiatry & Neurology Psychiatry
PROC: 0JQH3ZZ Repair Left Lower Arm Subcutaneous Tissue and Fascia, Percutaneous Approach (ICD-10-PCS; principal; 2022-05-07)
DX: F33.2 Major depressive disorder, recurrent severe without psychotic features (principal); Q43.1 Hirschsprung's disease; M32.9 Systemic lupus erythematosus, unspecified; F10.20 Alcohol dependence, uncomplicated; Z91.128 Patient's intentional underdosing of medication regimen for other reason; S51.812A Laceration without foreign body of left forearm, initial encounter; F17.210 Nicotine dependence, cigarettes, uncomplicated; F60.3 Borderline personality disorder; S61.512A Laceration without foreign body of left wrist, initial encounter; X78.8XXA Intentional self-harm by other sharp object, initial encounter; Z62.890 Parent-child estrangement NEC; F60.89 Other specific personality disorders; R74.8 Abnormal levels of other serum enzymes; Z88.2 Allergy status to sulfonamides; Z56.2 Threat of job loss; Z91.52 Personal history of nonsuicidal self-harm; Z87.820 Personal history of traumatic brain injury; Z91.419 Personal history of unspecified adult abuse; Z79.899 Other long term (current) drug therapy; Z88.8 Allergy status to other drugs, medicaments and biological substances; Z81.1 Family history of alcohol abuse and dependence; Z81.4 Family history of other substance abuse and dependence; Z81.8 Family history of other mental and behavioral disorders; Z28.310 Unvaccinated for COVID-19
CPT/HCPCS: 12002; 36415; 80053; 80143; 80306; 84703; 85025; 85610; 85730; 99291

== ENCOUNTER 2022-05-23 13:02 | Inpatient (IN) | payer OTHER ==
[2022-05-23 13:06] LABS: Glucose,Whole Blood 72 mg/dL (70-110)
[2022-05-23] MEDS ORDERED: SODIUM CHLORIDE 0.9% 1,000 ML IV ONE ×4 (13:07→17:13)
[2022-05-23] MEDS ORDERED: ONDANSETRON 4 MG/2 ML VIAL IVP STA ×2 (13:07→15:47)
--- NOTE | 2022-05-23 13:25 | ED ---
General Adult HPI - General Stated complaint: ETOH Time Seen by Provider: 05/23/22 13:02 Source: patient, RN notes reviewed, old records reviewed - History of Present Illness Initial comments: This is a 26-year-old female presents emergency Department stating she is suicidal. Patient states her boyfriend left 3 days ago because he said the [employer] and when he does that it upsets her so she starts drinking heavily and then becomes suicidal. Patient states she was recently in the psychiatric santiago at this hospital was released home to follow-up as an outpatient she states she has not done it. Patient states he also gave her some medication to prevent her from drinking but she does not take it. Patient states she drank about a liter of vodka today. Patient denies any drug use besides marijuana. Patient denies any attempt at suicide today. Patient denies a specific plan today. Patient denies any physical complaints today. Patient denies recent fever chills or cough per patient denies chest pain palpitations difficulty breathing shortness of breath. Patient denies any abdominal pain. Patient states she has been vomiting which occurs sometimes when she drinks too much. 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 - Related Data Home Medications Medication Instructions Recorded Confirmed No Known Home Medications 05/23/22 05/23/22 Allergies Allergy/AdvReac Type Severity Reaction Status Date / Time lamotrigine [From Lamictal] Allergy Astorga-Yannick Verified 05/23/22 14:40 Syndrome lithium Allergy Astorga-Yannick Verified 05/23/22 14:40 Syndrome Sulfa (Sulfonamide Allergy Astorga-Yannick Verified 05/23/22 14:40 Antibiotics) Syndrome Review of Systems ROS Statement: Those systems with pertinent positive or pertinent negative responses have been documented in the HPI. ROS Other: All systems not noted in ROS Statement are negative. Past Medical History Past Medical History: Unable to Obtain Additional Past Medical History / Comment(s): lupus History of Any Multi-Drug Resistant Organisms: Unobtainable Past Surgical History: No Surgical Hx Reported Past Psychological History: Anxiety, Depression Smoking Status: Light tobacco smoker, Vaper Past Alcohol Use History: Unable to Obtain Past Drug Use History: Unable to Obtain Course Vital Signs 05/23/22 13:09 Temperature 98.2 F Pulse Rate 114 H Respiratory 18 Rate Blood Pressure 155/91 O2 Sat by Pulse 94 L Oximetry Medical Decision Making - Lab Data Result diagrams: 05/23/22 13:24 05/23/22 13:24 Lab Results 05/23/22 05/23/22 05/23/22 Range/Units 13: 13:24 13:24 WBC 6.8 (3.8-10.6) k/uL RBC 4.46 (3.80-5.40) m/uL Hgb 14.3 (11.4-16.0) gm/dL Hct 43.5 (34.0-46.0) % MCV 97.4 (80.0-100.0) fL MCH 32.0 (25.0-35.0) pg MCHC 32.8 (31.0-37.0) g/dL RDW 13.2 (11.5-15.5) % Plt Count 435 (150-450) k/uL MPV 7.9 Neutrophils % 68 % Lymphocytes % 25 % Monocytes % 3 % Eosinophils % 0 % Basophils % 0 % Neutrophils # 4.6 (1.3-7.7) k/uL Lymphocytes # 1.7 (1.0-4.8) k/uL Monocytes # 0.2 (0-1.0) k/uL Eosinophils # 0.0 (0-0.7) k/uL Basophils # 0.0 (0-0.2) k/uL Sodium (137-145) mmol/L Potassium (3.5-5.1) mmol/L Chloride (98-107) mmol/L Carbon Dioxide (22-30) mmol/L Anion Gap mmol/L BUN (7-17) mg/dL Creatinine (0.52-1.04) mg/dL Est GFR (CKD-EPI)AfAm (>60 ml/min/1.73 sqM) Est GFR (CKD-EPI)NonAf (>60 ml/min/1.73 sqM) Glucose (74-99) mg/dL POC Glucose (mg/dL) 72 (70-110) mg/dL POC Glu [place] Blower ID Makayla Torre Calcium (8.4-10.2) mg/dL Magnesium (1.6-2.3) mg/dL Total Bilirubin (0.2-1.3) mg/dL AST (14-36) U/L ALT (4-34) U/L Alkaline Phosphatase (38-126) U/L Total Protein (6.3-8.2) g/dL Albumin (3.5-5.0) g/dL Urine Opiates Screen Not Detected (NotDetected) Ur Oxycodone Screen Not Detected (NotDetected) Urine Methadone Screen Not Detected (NotDetected) Ur Propoxyphene Screen Not Detected (NotDetected) Ur Barbiturates Screen Not Detected (NotDetected) U Tricyclic Antidepress Not Detected (NotDetected) Ur Phencyclidine Scrn Not Detected (NotDetected) Ur Amphetamines Screen Not Detected (NotDetected) U Methamphetamines Scrn Not Detected (NotDetected) U Benzodiazepines Scrn Detected H (NotDetected) Urine Cocaine Screen Not Detected (NotDetected) U Marijuana (THC) Screen Detected H (NotDetected) Serum Alcohol mg/dL 05/23/22 05/23/22 Range/Units 13:24 14:24 WBC (3.8-10.6) k/uL RBC (3.80-5.40) m/uL Hgb (11.4-16.0) gm/dL Hct (34.0-46.0) % MCV (80.0-100.0) fL MCH (25.0-35.0) pg MCHC (31.0-37.0) g/dL RDW (11.5-15.5) % Plt Count (150-450) k/uL MPV Neutrophils % % Lymphocytes % % Monocytes % % Eosinophils % % Basophils % % Neutrophils # (1.3-7.7) k/uL Lymphocytes # (1.0-4.8) k/uL Monocytes # (0-1.0) k/uL Eosinophils # (0-0.7) k/uL Basophils # (0-0.2) k/uL Sodium 148 H (137-145) mmol/L Potassium 3.7 (3.5-5.1) mmol/L Chloride 117 H (98-107) mmol/L Carbon Dioxide 8 L* (22-30) mmol/L Anion Gap 23 mmol/L BUN 5 L (7-17) mg/dL Creatinine 0.47 L (0.52-1.04) mg/dL Est GFR (CKD-EPI)AfAm >90 (>60 ml/min/1.73 sqM) Est GFR (CKD-EPI)NonAf >90 (>60 ml/min/1.73 sqM) Glucose 59 L (74-99) mg/dL POC Glucose (mg/dL) (70-110) mg/dL POC Glu [place] Blower ID Calcium 6.6 L (8.4-10.2) mg/dL Magnesium 1.5 L (1.6-2.3) mg/dL Total Bilirubin 0.5 (0.2-1.3) mg/dL AST 63 H (14-36) U/L ALT 59 H (4-34) U/L Alkaline Phosphatase 82 (38-126) U/L Total Protein 7.0 (6.3-8.2) g/dL Albumin 4.2 (3.5-5.0) g/dL Urine Opiates Screen (NotDetected) Ur Oxycodone Screen (NotDetected) Urine Methadone Screen (NotDetected) Ur Propoxyphene Screen (NotDetected) Ur Barbiturates Screen (NotDetected) U Tricyclic Antidepress (NotDetected) Ur Phencyclidine Scrn (NotDetected) Ur Amphetamines Screen (NotDetected) U Methamphetamines Scrn (NotDetected) U Benzodiazepines Scrn (NotDetected) Urine Cocaine Screen (NotDetected) U Marijuana (THC) Screen (NotDetected) Serum Alcohol 76 mg/dL Disposition Clinical Impression: Suicidal ideation, Depression, Acute vomiting, Alcohol intoxication Disposition: ADMITTED IP TO THIS HOSP Referrals: None,Stated [Primary Care Provider] - 1-2 days Time of Disposition: 15:43
[2022-05-23 13:47] LABS: ALT 59 U/L (4-34); AST 63 U/L (14-36); African American GFR (CKD) >90 (>60 ml/min/1.73 sqM); Albumin 4.2 g/dL (3.5-5.0); Alkaline Phosphatase 82 U/L (38-126); Anion Gap 23 mmol/L; Blood Urea Nitrogen 5 mg/dL (7-17); Calcium 6.6 mg/dL (8.4-10.2); Chloride 117 mmol/L (98-107); Glucose 59 mg/dL (74-99); Magnesium 1.5 mg/dL (1.6-2.3); Non-African American GFR(CKD) >90 (>60 ml/min/1.73 sqM); Potassium 3.7 mmol/L (3.5-5.1); Sodium 148 mmol/L (137-145); Total Bilirubin 0.5 mg/dL (0.2-1.3)
[2022-05-23 13:48] LABS: Basophils % (A) 0 %; Eosinophils % (A) 0 %; HCT 43.5 % (34.0-46.0); HGB 14.3 gm/dL (11.4-16.0); Lymphocytes # (A) 1.7 k/uL (1.0-4.8); Lymphocytes % (A) 25 %; MCHC 32.8 g/dL (31.0-37.0); MCV 97.4 fL (80.0-100.0); Mean Platelet Volume 7.9; Monocytes # (A) 0.2 k/uL (0-1.0); Monocytes % (A) 3 %; Neutrophils # (A) 4.6 k/uL (1.3-7.7); Neutrophils % (A) 68 %; Platelet Count 435 k/uL (150-450); RBC 4.46 m/uL (3.80-5.40); RDW 13.2 % (11.5-15.5); WBC 6.8 k/uL (3.8-10.6)
[2022-05-23 13:51] LABS: Carbon Dioxide 8 mmol/L (22-30)
[2022-05-23 13:55] LABS: Urn Cannabinoid Scrn Detected (NotDetected)
[2022-05-23 13:56] LABS: Amphetamine Screen,Urine Not Detected (NotDetected); Barbiturate Screen,Urine Not Detected (NotDetected); Benzodiazepines Screen,Urine Detected (NotDetected); Cocaine Screen,Urine Not Detected (NotDetected); Methadone Screen, Urine Not Detected (NotDetected); Opiate Screen,Urine Not Detected (NotDetected); Oxycodone Screen, Urine Not Detected (NotDetected); Phencyclidine Screen,Urine Not Detected (NotDetected); Tricyclic Antidepressant,Urine Not Detected (NotDetected)
[2022-05-23] MEDS ORDERED: MAGNESIUM SULFATE-D5W PMX 1 GM in DEXTROSE/WATER 1 100ML.BAG IVPB ONE (14:01)
[2022-05-23 15:26] LABS: ALT 72 U/L (4-34); AST 79 U/L (14-36); African American GFR (CKD) >90 (>60 ml/min/1.73 sqM); Albumin 5.3 g/dL (3.5-5.0); Alkaline Phosphatase 115 U/L (38-126); Anion Gap 30 mmol/L; Blood Urea Nitrogen 6 mg/dL (7-17); Calcium 8.6 mg/dL (8.4-10.2); Carbon Dioxide 11 mmol/L (22-30); Chloride 106 mmol/L (98-107); Glucose 85 mg/dL (74-99); Non-African American GFR(CKD) >90 (>60 ml/min/1.73 sqM); Potassium 4.6 mmol/L (3.5-5.1); Sodium 147 mmol/L (137-145); Total Bilirubin 0.5 mg/dL (0.2-1.3); Total Protein 8.8 g/dL (6.3-8.2)
[2022-05-23 15:41] LABS: Alcohol 290 mg/dL
[2022-05-23] MEDS ORDERED: THIAMINE 100 MG/ML 2 ML VIAL IM STA (15:47)
[2022-05-23] MEDS ORDERED: LORazepam 2 MG/ML INJ IV PRN ×5 (15:47→16:55)
[2022-05-23] MEDS ORDERED: ONDANSETRON 4 MG/2 ML VIAL IVP PRN (15:47)
--- NOTE | 2022-05-23 16:14 | P.HPIM ---
History of Present Illness H&P Date: 05/23/22 History of Presenting Illness: Patient is a 26-year-old female with a past medical history of daily alcohol abuse reportedly drinking up to 2 L of vodka daily beginning around the age of 13, history of alcohol withdrawal seizures, Hirschsprung's disease, anxiety, depression, borderline personality disorder, nicotine dependence, and marijuana use. She presented to the emergency department with a chief complaint of suicidal ideations and alcohol intoxication. Patient reports she is from [place] and currently staying in [place] with her boyfriend. She reports long-standing history of anxiety and depression and reports recent hospitalization for suicidal attempt, alcohol abuse disorder and depression she reports being discharged on 05/10/22 and reports after discharge she did not take any of the medications that she was prescribed because she thought it would "interfere with my alcohol" and that she would rather drink alcohol. Patient states she has been drinking daily since discharge but reports that her boyfriend is in the [facility] and he left for 16 days. Patient states this causes her extreme anxiety anytime he leaves and reports she started binge drin german 3 days ago and hasn't been able to eat anything only drink alcohol and she began wanting to kill herself. Patient reports she woke up this morning after vomiting all night and barely able to keep any alcohol down. She reports she became concerned because she was seeing black spots and knew she needed help so she called an ambulance. Upon assessment at bedside patient very tearful and states, "I just don't think it safe for me to be at home by myself right now because I know I'm going to hurt myself." Patient has been vomiting and emesis basin at bedside. She currently denies having any headache, lightheadedness, dizziness, chest pain, palpitations, shortness of breath, or experiencing any numbness/tingling/weakness in her extremities. Patient denies having any drug use and denies taking any medications including medications that were previously prescribed to her. 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 Patient underwent full evaluation in the emergency dep artment she was found to be hypernatremic with sodium of 148 and acidotic with lactic acid 6.9, chloride of 117, bicarbonate 8, and anion gap of 23. Magnesium was low at 1.5 and replaced and patient hypoglycemic with blood glucose of 59. Liver enzymes elevated with AST is 63 and ALT of 59. Urine drug screen positive for benzodiazepines and marijuana. Serum alcohol was 290. Patient was provided with 2 L IV fluid bolus and started on continuous IV fluid infusion. She was admitted under our services with consultation to psychiatry for evaluation. Review of systems: Pertinent positives and negatives as discussed in HPI, a complete review of systems was performed and all other systems are negative. Physical exam: Vital signs reviewed and stable. General: Nontoxic, no distress and appears stated age. Derm: Skin warm and dry, normal coloration for ethnicity. Head: Atraumatic, normocephalic and symmetric. Eyes: EOMs intact, no lid lag, and anicteric sclera Mouth: no lip lesions, mucus membranes moist Cardiovascular: regular rate and rhythm with normal S1S2, no murmur, positive posterior tibial pulses bilaterally, and cap refill < 2 seconds. Lungs: Respirations even, regular, and unlabored on room air. Lungs CTA bilaterally, no rhonchi, no rales, no wheezing, and no accessory muscle usage. Abdominal: soft, nontender to palpation, no guarding, no appreciable organomeg micky (patient reports diffuse abdominal pain/cramping with vomiting, but denies tenderness upon palpation) Ext: ROM intact. No gross muscle atrophy, no edema, no contractures Neuro: Speech clear, face symmetrical and CN II-XII grossly intact with no noted focal neuro deficits Psych: Alert and oriented to person, place, time, and situation. Tearful and depressed affect. Patient reports suicidal ideations without a current plan. Assessment and Plan of Care: Alcohol intoxication in an active alcoholic Alcoholic ketoacidosis Lactic acidosis Intractable nausea and vomiting secondary to above History of alcohol withdrawal seizures -Lactate 6.9, serum osmolality 366, chloride 117, bicarbonate 8, and anion gap of 23. -CIWA Protocol with symptom triggered medication management with benzodiazepin es. -Patient to receive a total of 3 L bolus followed by continuous aggressive IV hydration. If no improvement in lactic acid status post fluid bolus will need blood gas. -Anti-emetics -Thiamine 100 mg twice a day -Multivitamin daily -Folate 1 mg daily -Seizure, fall, aspiration, and elopement precautions in place. -Urine drug screen positive for benzodiazepines and marijuana -Continued close monitoring of electrolytes and replace as needed. -Telemetry monitoring. -Serum hCG to be obtained Hypoglycemia -Likely resulting from alcoholic ketoacidosis -Patient to be placed on glycemic protocol with blood glucose checks every 6 hours. Suicidal ideations without a plan Depression with anxiety History of borderline personality disorder -Psychiatry consulted -Suicide and elopement precautions in place -Sitter to remain at bedside for safety CODE STATUS: Full code DVT prophylaxis: Heparin Discussed with: Patient and RN Anticipated discharge date: Clinical course to determine Anticipated discharge place: Inpatient psychiatric unit A total of 48 minutes was spent on the care of this complex patient more than 50% of the time was spent in counseling and care coordination. Caio Lopez NP rendered care for this patient independently, reviewed the findings and plan as documented in the note above. I did not physically speak with or examine the patient on this date. Past Medical History Past Medical History: Unable to Obtain Additional Past Medical History / Comment(s): lupus History of Any Multi-Drug Resistant Organisms: Unobtainable Past Surgical History: No Surgical Hx Reported Past Psychological History: Anxiety, Depression Smoking Status: Light tobacco smoker, Vaper Past Alcohol Use History: Unable to Obtain Past Drug Use History: Unable to Obtain Medications and Allergies Home Medications Medication Instructions Recorded Confirmed Type Acamprosate Calcium [Campral] 666 mg PO TID 30 Days tab 05/27/22 Rx DULoxetine HCL [Cymbalta] 20 mg PO BID 30 Days cap 05/27/22 Rx Folic Acid 1 mg PO DAILY 30 Days tab 05/27/22 Rx Multivitamins, Thera [Multivitamin 1 each PO DAILY 30 Days tab 05/27/22 Rx (formulary)] Nicotine 14Mg/24Hr Patch [Habitrol] 1 patch TRANSDERM DAILY 14 Days 05/27/22 Rx patch Thiamine [Vitamin B-1] 100 mg PO DAILY 30 Days tab 05/27/22 Rx busPIRone HCl [Buspar] 20 mg PO TID 30 Days tab 05/27/22 Rx hydrOXYzine pamoate [Vistaril] 25 mg PO BID PRN 30 Days cap 05/27/22 Rx traZODone HCL [Desyrel] 100 mg PO HS 30 Days tab 05/27/22 Rx Allergies Allergy/AdvReac Type Severity Reaction Status Date / Time lamotrigine [From Lamictal] Allergy Astorga-Yannick Verified 05/23/22 14:40 Syndrome lithium Allergy Astorga-Yannick Verified 05/23/22 14:40 Syndrome Sulfa (Sulfonamide Allergy Astorga-Yannick Verified 05/23/22 14:40 Antibiotics) Syndrome Physical Exam Vitals: Vital Signs Temp Pulse Resp BP Pulse Ox 05/23/22 13:09 98.2 F 114 H 18 155/91 94 L Intake and Output 05/23/22 05/23/22 05/23/22 06:59 14:59 22:59 Other: Weight 75.75 kg Results CBC & Chem 7: 05/24/22 05:26 05/24/22 18:09 Labs: Abnormal Lab Results - Last 24 Hours (Table) 05/23/22 05/23/22 05/23/22 Range/Units 13:24 13:24 15:03 Sodium 148 H 147 H (137-145) mmol/L Chloride 117 H (98-107) mmol/L Carbon Dioxide 8 L* 11 L (22-30) mmol/L BUN 5 L 6 L (7-17) mg/dL Creatinine 0.47 L (0.52-1.04) mg/dL Glucose 59 L (74-99) mg/dL Calcium 6.6 L (8.4-10.2) mg/dL Magnesium 1.5 L (1.6-2.3) mg/dL AST 63 H 79 H (14-36) U/L ALT 59 H 72 H (4-34) U/L Total Protein 8.8 H (6.3-8.2) g/dL Albumin 5.3 H (3.5-5.0) g/dL U Benzodiazepines Scrn Detected H (NotDetected) U Marijuana (THC) Screen Detected H (NotDetected) Serum Alcohol 290 H* mg/dL
[2022-05-23] MEDS ORDERED: LORazepam 1 MG TAB PO PRN (16:55)
[2022-05-23 17:03] LABS: HCG,Quantitative Serum <2.4 mIU/mL
[2022-05-23] MEDS ORDERED: DEXTROSE 50% SYRINGE 50 ML IVP PRN ×2 (17:05)
[2022-05-23] MEDS: PROCHLORPERAZINE INJ 10 MG/2 ML VIAL IVP STA ×2 (20:07→23:36)
[2022-05-24 06:12] LABS: HCT 33.4 % (34.0-46.0); MCH 32.1 pg (25.0-35.0); MCHC 33.6 g/dL (31.0-37.0); MCV 95.6 fL (80.0-100.0); Platelet Count 271 k/uL (150-450); RBC 3.49 m/uL (3.80-5.40); RDW 12.8 % (11.5-15.5); WBC 7.7 k/uL (3.8-10.6)
[2022-05-24 06:14] LABS: HGB 11.2 gm/dL (11.4-16.0)
[2022-05-24 06:25] LABS: ALT 57 U/L (4-34); AST 53 U/L (14-36); African American GFR (CKD) >90 (>60 ml/min/1.73 sqM); Alkaline Phosphatase 73 U/L (38-126); Anion Gap 14 mmol/L; Blood Urea Nitrogen 3 mg/dL (7-17); Calcium 7.4 mg/dL (8.4-10.2); Carbon Dioxide 14 mmol/L (22-30); Chloride 107 mmol/L (98-107); Glucose 64 mg/dL (74-99); Magnesium 1.9 mg/dL (1.6-2.3); Non-African American GFR(CKD) >90 (>60 ml/min/1.73 sqM); Potassium 3.7 mmol/L (3.5-5.1); Sodium 135 mmol/L (137-145); Total Bilirubin 0.6 mg/dL (0.2-1.3); Total Protein 6.4 g/dL (6.3-8.2)
[2022-05-24 06:51] VITALS: RESP 16
[2022-05-24] MEDS: HEPARIN SODIUM,PORCINE/PF 5,000 UNIT/0.5 ML SYRINGE SQ SCH ×2 (07:36→16:35)
[2022-05-24] MEDS ORDERED: FOLIC ACID 1 MG TAB PO SCH (09:00)
[2022-05-24] MEDS ORDERED: MULTIVITAMINS, THERA 1 EACH TAB PO SCH (09:00)
[2022-05-24] MEDS ORDERED: THIAMINE 100 MG TAB PO SCH (09:00)
[2022-05-24 09:02] LABS: Ethanol 216 mg/dL (Negative); Isopropanol Negative (Negative)
--- NOTE | 2022-05-24 09:53 | P.PN ---
Progress Note - Text Progress Note Date: 05/24/22 Patients withdrawal is adequately treated at this time. She is feeling well. She is medically optimized to be evaluated by mental health services. Formal note or discharge summary to follow pending psychiatric evaluation.
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
--- NOTE | 2022-05-24 15:32 | P.DS ---
Providers Date of admission: 05/23/22 15:44 Expected date of discharge: 05/24/22 Attending physician: Elizabeth Mora MD Consults: 05/23/22 15:44 Consult Physician Urgent Consulting Provider: Yovani Lyons Consult Reason/Comments: Suicidal, depression Do you want consulting provider notified?: Already Contacted Primary care physician: Stated None Hospital Course: Discharge Diagnosis: Alcohol intoxication, resolved Alcoholic ketosis, results Lactic acidosis, resolved History of alcohol withdrawal Hypoglycemia secondary to alcoholic ketosis Suicidal ideation Hospital Course: Patient is a 26-year-old female with alcohol abuse reportedly drinking up to 2 L of vodka daily beginning around the age of 13, history of alcohol withdrawal seizures, Hirschsprung's disease, anxiety, depression, borderline personality disorder, nicotine dependence, and marijuana use. She presented to the emergency department with a chief complaint of suicidal ideations and alcohol intoxication. Patient underwent an extensive evaluation in the emergency department. She was found to be hypernatremic with sodium of 148 and acidotic with lactic acid 6.9, chloride of 117, bicarbonate 8, and anion gap of 23. Magnesium was low at 1.5 and replaced and patient hypoglycemic with blood glucose of 59. Liver enzymes elevated with AST is 63 and ALT of 59. Urine drug screen positive for benzodiazepines and marijuana. Serum alcohol was 290. Patient was provided with 2 L IV fluid bolus and started on continuous IV fluid infusion. She was admitted with consultation to psychiatry for evaluation. Her CIWA levels stayed low, she was started on librium. Psych recommended inpatient mental health unit and patient was subsequently discharged to the mental health unit. Patient seen and examined at bedside. Denies any nausea, vomiting. States her alcohol withdrawal is much better than yesterday. Feeling slightly less de pressed. Vital signs reviewed and stable. General: nontoxic, no distress, appears at stated age Derm: warm, dry Head: atraumatic, normocephalic, symmetric Eyes: EOMI, no lid lag, anicteric sclera Mouth: no lip lesion, mucus membranes moist Cardiovascular: S1S2 reg, no murmur, positive posterior tibial pulse bilateral, Lungs: CTA bilateral, no rhonchi, no rales , no accessory muscle use Abdominal: soft, nontender to palpation, no guarding, no appreciable organomegaly Ext: no gross muscle atrophy, no edema, no contractures Neuro: CN II-XI grossly intact, no focal neuro deficits Psych: Alert, oriented, anxious affect A total of 25 minutes of time were spent preparing this complex discharge summary. Patient was discharged on 05/24/22. Patient Condition at Discharge: Stable Plan - Discharge Summary New Discharge Prescriptions: New Folic Acid 1 mg PO DAILY tab Thiamine [Vitamin B-1] 100 mg PO DAILY tab chlordiazePOXIDE HCl [Librium] 20 mg PO TID cap Multivitamins, Thera [Multivitamin (formulary)] 1 each PO DAILY tab Discharge Medication List Folic Acid 1 mg PO DAILY tab 05/24/22 [Rx] Multivitamins, Thera [Multivitamin (formulary)] 1 each PO DAILY tab 05/24/22 [Rx] Thiamine [Vitamin B-1] 100 mg PO DAILY tab 05/24/22 [Rx] chlordiazePOXIDE HCl [Librium] 20 mg PO TID cap 05/24/22 [Rx] Follow up Appointment(s)/Referral(s): None,Stated [Primary Care Provider] - 1-2 days Discharge Disposition: TRANSFER TO PSYCH HOSP/UNIT
[2022-05-24 18:41] LABS: ALT 70 U/L (4-34); AST 72 U/L (14-36); African American GFR (CKD) >90 (>60 ml/min/1.73 sqM); Albumin 4.8 g/dL (3.5-5.0); Albumin/Globulin Ratio 1.7; Alkaline Phosphatase 87 U/L (38-126); Anion Gap 14 mmol/L; Blood Urea Nitrogen 2 mg/dL (7-17); Calcium 8.9 mg/dL (8.4-10.2); Carbon Dioxide 17 mmol/L (22-30); Chloride 103 mmol/L (98-107); Globulin 2.9 g/dL; Glucose 94 mg/dL (74-99); Non-African American GFR(CKD) >90 (>60 ml/min/1.73 sqM); Potassium 3.9 mmol/L (3.5-5.1); Sodium 134 mmol/L (137-145); Total Bilirubin 0.8 mg/dL (0.2-1.3); Total Protein 7.7 g/dL (6.3-8.2)
[2022-05-24 19:50] VITALS: BP 110/60; PULSE 86; TEMP 98
== END 2022-05-24 20:44 | DRG 897 ==
LOC: EC 13:02 → 3SCARD 15:44 → 4SSUR 05-24 08:40
PROVIDERS: ADMIT Family Medicine; ATTEND Family Medicine
PROC: HZ2ZZZZ Detoxification Services for Substance Abuse Treatment (ICD-10-PCS; principal; 2022-05-23)
DX: F10.229 Alcohol dependence with intoxication, unspecified (principal); E87.20 Acidosis, unspecified; R45.851 Suicidal ideations; E87.0 Hyperosmolality and hypernatremia; Q43.1 Hirschsprung's disease; Z20.822 Contact with and (suspected) exposure to COVID-19; R11.2 Nausea with vomiting, unspecified; Y90.8 Blood alcohol level of 240 mg/100 ml or more; F41.8 Other specified anxiety disorders; E16.2 Hypoglycemia, unspecified; F60.3 Borderline personality disorder; F12.90 Cannabis use, unspecified, uncomplicated; F17.290 Nicotine dependence, other tobacco product, uncomplicated; Z88.8 Allergy status to other drugs, medicaments and biological substances; Z88.2 Allergy status to sulfonamides
CPT/HCPCS: 36415; 80053; 80306; 80320; 82075; 83605; 83735; 83930; 83935; 84600; 84702; 85025; 85027; 87635; 96361; 96365; 96366; 96372; 96375; 96376; 99285

== ENCOUNTER 2022-05-24 17:37 | Inpatient (IN) | payer MEDICAID ==
[2022-05-24] MEDS ORDERED: HALOPERIDOL LACTATE 5 MG/ML 1 ML VIAL IM PRN (19:19)
[2022-05-24] MEDS ORDERED: MAGNESIUM HYDROXIDE 2,400 MG/10 ML CUP PO PRN (19:19)
[2022-05-24] MEDS ORDERED: MAG HYDROX/AL HYDROX/SIMETH 355 ML BOTTLE PO PRN (19:19)
[2022-05-24] MEDS ORDERED: ACETAMINOPHEN TAB 325 MG TAB PO PRN (19:19)
[2022-05-24] MEDS ORDERED: hydrOXYzine HCL 50 MG/ML 1 ML VIAL IM PRN (19:23)
[2022-05-24] MEDS ORDERED: hydrOXYzine pamoate 25 MG CAP PO PRN (19:23)
[2022-05-24] MEDS ORDERED: haloperidoL 5 MG TAB PO PRN (19:23)
[2022-05-24] MEDS: traZODone HCL 100 MG TAB PO SCH (20:29)
[2022-05-24] MEDS: busPIRone HCl 10 MG TAB PO SCH (20:29)
[2022-05-24] MEDS: ACAMPROSATE CALCIUM 333 MG TABLET.DR PO SCH (21:08)
--- NOTE | 2022-05-25 02:10 | P.CONS ---
History of Present Illness - Reason for Consult Consult date: 05/25/22 - History of Present Illness The patient is a 26-year-old female with a PMH of alcohol abuse, Hirschsprung disease, borderline personality disorder, marijuana abuse, and depression with suicidal ideation who had presented to the emergency room with complaints of suicidal ideation while intoxicated. The patient was initially intoxicated and was admitted under the medical service. She was subsequently discharged to the mental health unit where she was seen and evaluated. She reports drinking a liter of vodka several days of the week, she reports that it is her coping mechanism whenever her boyfriend's not at home. She reported feeling at her baseline of the time of interview. Denied experiencing chest discomfort, shortness of liver, chills, cough, nausea, vomiting, abdominal pain, diarrhea. Review of systems: Pertinent positives and negatives as discussed in HPI, a complete review of systems was performed and all other systems are negative. Physical examination: General: non toxic, no distress, appears at stated age, normal weight Derm: no unusual rashes/lesions, no unusual ecchymoses, warm, dry Head: atraumatic, normocephalic, symmetric Eyes: EOMI, no lid lag, anicteric sclera ENT: Nose and ears atraumatic, no thrush, no pharyngeal erythema Neck: trachea midline, supple Mouth: no lip lesion, mucus membranes moist Cardiovascular: S1S2 reg, no murmur, no edema Lungs: CTA bilateral, no rhonchi, no rales , no accessory muscle use Abdominal: soft, nontender to palpation, no guarding Ext: no gross muscle atrophy, no contractures, Neuro: No gross focal neuro deficits noted Psych: Alert, oriented, appropriate affect Assessment/plan Alcohol abuse -Monitor for signs of withdrawal -Strongly advised on importance of cessation -Continue thiamine and folic acid Now on abuse -Advised on the importance of cessation Depression with suicidal ideation -As per psychiatry Thank you for allowing us to participate in the care of this patient. We will follow peripherally. Do not hesitate to contact us with questions. Someone can be reached from the [facility] hospitalist group at all hours of the day at [phone]. Past Medical History Past Medical History: Unable to Obtain Additional Past Medical History / Comment(s): lupus History of Any Multi-Drug Resistant Organisms: Unobtainable Past Surgical History: No Surgical Hx Reported Past Psychological History: Anxiety, Depression Smoking Status: Light tobacco smoker, Vaper Past Alcohol Use History: Unable to Obtain Past Drug Use History: Unable to Obtain - Past Family History Mother Family Medical History: Hypertension Medications and Allergies Home Medications Medication Instructions Recorded Confirmed Type Folic Acid 1 mg PO DAILY tab 05/24/22 05/24/22 Rx Multivitamins, Thera [Multivitamin 1 each PO DAILY tab 05/24/22 05/24/22 Rx (formulary)] Thiamine [Vitamin B-1] 100 mg PO DAILY tab 05/24/22 05/24/22 Rx chlordiazePOXIDE HCl [Librium] 20 mg PO TID cap 05/24/22 05/24/22 Rx Allergies Allergy/AdvReac Type Severity Reaction Status Date / Time lamotrigine [From Lamictal] Allergy Astorga-Yannick Verified 05/23/22 14:40 Syndrome lithium Allergy Astorga-Yannick Verified 05/23/22 14:40 Syndrome Sulfa (Sulfonamide Allergy Rizwan-Yannick Verified 05/23/22 14:40 Antibiotics) Syndrome Physical Exam Vitals: Vital Signs Temp Pulse BP 05/25/22 01:37 97.2 F L 106 H 133/89 Intake and Output 05/24/22 05/24/22 05/25/22 14:59 22:59 06:59 Other: Weight 75.75 kg
[2022-05-25] MEDS ORDERED: FLUoxetine HCL 20 MG CAP PO SCH (09:00)
[2022-05-25] MEDS: ACAMPROSATE CALCIUM 333 MG TABLET.DR PO SCH ×3 (09:24→20:18)
[2022-05-25] MEDS: FOLIC ACID 1 MG TAB PO SCH (09:26)
[2022-05-25] MEDS: MULTIVITAMINS, THERA 1 EACH TAB PO SCH (09:26)
[2022-05-25] MEDS: NICOTINE 14MG/24HR PATCH TRANSDERM SCH (09:26)
[2022-05-25] MEDS: THIAMINE 100 MG TAB PO SCH (09:26)
[2022-05-25] MEDS: busPIRone HCl 10 MG TAB PO SCH ×3 (09:26→20:19)
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
[2022-05-25 10:35] LABS: LDL Cholesterol,Calculated 159.8 mg/dL (0.0-131.0)
[2022-05-25] MEDS: traZODone HCL 100 MG TAB PO SCH (20:19)
[2022-05-26] MEDS: NICOTINE 14MG/24HR PATCH TRANSDERM SCH (08:21)
[2022-05-26] MEDS: ACAMPROSATE CALCIUM 333 MG TABLET.DR PO SCH ×3 (08:21→21:07)
[2022-05-26] MEDS: MULTIVITAMINS, THERA 1 EACH TAB PO SCH (08:22)
[2022-05-26] MEDS: THIAMINE 100 MG TAB PO SCH (08:22)
[2022-05-26] MEDS: FOLIC ACID 1 MG TAB PO SCH (08:22)
[2022-05-26] MEDS: busPIRone HCl 10 MG TAB PO SCH ×3 (08:22→21:06)
[2022-05-26] MEDS ORDERED: FLUoxetine HCL 20 MG CAP PO SCH (09:00)
--- NOTE | 2022-05-26 14:19 | P.PN ---
Progress Note - Text Progress Note Date: 05/26/22 Interval History: Patient was seen sitting in the lounge alone watching television and was direc table and agreeable to speak with commercial lines underwriter in the office. Patient was noted to be crying in the lounge before commercial lines underwriter approached her. She states that she is still feeling depressed and anxious and we spoke about other medication options which she is okay with starting Cymbalta instead. She continues today to minimize her need for inpatient psychiatric hospitalization and also minimizing her alcohol use. She claims that she does not know where her pets are as they are not at home. She claims that her boyfriend is going to return today back home and she claims that she wants to go home. She continues to be tearful and irritable, argumentative with the commercial lines underwriter and very focused on discharge. We spoke about getting an ECG today as she is tachycardic for the past few days. She is claiming that her withdrawal symptoms have been improving. Claims that she slept fairly last night. At this time patient denies any suicidal or homical ideations, intent or plan. Patient denies any auditory, visual hallucinations and denies any paranoia or delusions. Patient denies any side effects from the medications and has been compliant with meds. Mental Status Exam: General Appearance: Patient appears to be tearful, argumentative, stated age is alert, superficial and anxious. crying repeatedly. Patient appears to have improving hygiene and grooming. Behavior: Patient is seated without any agitated behavior. Argumentative and irritable. Speech: Patient's speech is fluent and nonpressured Mood/Affect: Patient reports their mood is "okay", affect is incongruent and tearful. Suicidality/Homicidality: Patient denies having any homicidal ideation intent or plan. Denies any suicidal ideation currently, no intent or plan. Perceptions: Patient denies any visual hallucinations and denies auditory hallucinations Though content/process: There is no evidence of any delusional thought content and thought process is linear and goal-directed. demanding today, argumentative. rationalizing. Memory and concentration: AOX3, grossly intact for the purposes of this session. Judgment and insight: Poor/superficial IMPRESSIONS: Depressive disorder NOS Alcohol use disorder, severe, currently in withdrawal Borderline personality disorder cannabis use disorder nicotine dependence Plan: -Patient continues to meet criteria for inpatient psychiatric admission for symptom stabilization and safety. Patient has signed adult voluntary form and medication consent and was placed in patient's chart. -Medications: Trazodone 100 mg daily at bedtime for mood/insomnia, BuSpar 20 mg twice a day for anxiety, d/c Prozac due to ineffectiveness and replace with cymbalta 20 mg bid for mood/anxiety, acamprosate 666 mg 3 times a day for alcohol cravings. decrease Librium 10 mg 3 times a day for alcohol withdrawal and continue tapering down. vistaril prn for anxiety -EKG today as patient is consistently tachycardic -When necessary Ativan and Haldol for agitation/aggression. -NRT - nicotine patch -SW on board for discharge planning. Encouraged the patient to participate in milieu. likely discharge in 1-2 days if patient is improving. patient is interested in outpatient [facility] program not inpt rehab.
[2022-05-26] MEDS: traZODone HCL 100 MG TAB PO SCH (21:06)
[2022-05-26] MEDS: DULoxetine HCL 20 MG CAPSULE.DR PO SCH (21:07)
--- NOTE | 2022-05-27 00:59 | CONS ---
CONSULTATION CHIEF COMPLAINT: Depression. HISTORY OF PRESENT ILLNESS: This lady apparently acute depression. She stated that she was drinking. She then became nauseated and then became very agitated. She has had trouble with alcohol resulting in bouts of depression in the past. REVIEW OF SYSTEMS: She denies any headaches, change in vision or hearing, chest pain, shortness of breath, cough, abdominal pain, vomiting, diarrhea, melena, renal failure, etc. Past medical history, family history and personal and social histories are significant, in that she is on, 1. Depakote 250 mg 3 times a day. 2. BuSpar 30 mg twice a day as needed. 3. Trazodone 100 mg at bedtime. 4. Prozac 40 mg once a day. She is allergic to Lomotil and sulfa. Her past history reveals that she has had some trouble with alcohol in the past. She does consider herself to be alcoholic. She does smoke. PHYSICAL EXAMINATION: VITAL SIGNS: Blood pressure is 118/69 with a pulse of 70, respirations of 20, and she is afebrile. GENERAL: She appeared to be slender, awake and alert, in no acute distress. HEAD, EARS, EYES, NOSE, MOUTH AND THROAT: Normal. CHEST: Clear. CARDIAC: Normal. ABDOMEN: Soft, nontender without any masses. EXTREMITIES: Normal. NEUROLOGICAL: She is intact. ASSESSMENT: She is admitted to the hospital with diagnoses of: 1. Depression. 2. Alcohol abuse. RECOMMENDATIONS: None. MMODL / IJN: [id number] /
[2022-05-27 07:02] VITALS: RESP 16
[2022-05-27] MEDS: busPIRone HCl 10 MG TAB PO SCH (09:44)
[2022-05-27] MEDS: DULoxetine HCL 20 MG CAPSULE.DR PO SCH (09:44)
[2022-05-27] MEDS: THIAMINE 100 MG TAB PO SCH (09:44)
[2022-05-27] MEDS: ACAMPROSATE CALCIUM 333 MG TABLET.DR PO SCH (09:44)
[2022-05-27] MEDS: MULTIVITAMINS, THERA 1 EACH TAB PO SCH (09:45)
[2022-05-27] MEDS: FOLIC ACID 1 MG TAB PO SCH (09:45)
[2022-05-27] MEDS: NICOTINE 14MG/24HR PATCH TRANSDERM SCH (09:47)
--- NOTE | 2022-05-27 10:14 | P.DS ---
Providers Date of admission: 05/24/22 20:05 Expected date of discharge: 05/27/22 Attending physician: Sascha Marquez MD Consults: 05/24/22 19:19 Consult Physician Routine Consulting Provider: Luisana Physician Consult Reason/Comments: H&P and medical Do you want consulting provider notified?: Yes Primary care physician: Hardy Schuster - Discharge Diagnosis(es) (1) Depressive disorder Current Visit: Yes Status: Acute Priority: High (2) Alcohol use disorder, severe, dependence Current Visit: Yes Status: Acute Priority: High (3) Borderline personality disorder Current Visit: Yes Status: Acute Priority: High (4) Cannabis use disorder Current Visit: Yes Status: Acute Priority: Medium (5) Nicotine dependence Current Visit: Yes Status: Acute Priority: Low Hospital Course: Admission HPI: Admission note was completed by conventional mortgage underwriter "Patient is a single, 26-year-old [place] female who currently lives with her boyfriend in a house, unemployed, no kids. Patient was seen yesterday on 05/24 for psychiatric consultation by conventional mortgage underwriter and note reads as follows from that report "Patient was recently discharged from the mental health unit last month and claims that she did not follow-up with outpatient mental health and also has not been taking her psychiatric medications. Patient was discharged previously on trazodone, BuSpar and also Prozac along with acamprosate. Patient has a diagnosis of major depressive disorder and borderline personality disorder. She [facility] on [facility]23 was evaluated in the ER and claimed that she was feeling suicidal, stating that her boyfriend had left about 3 days ago. She states that he went to the [facility] and began drinking again. Apparently patient has claimed in the ER that she had not been taking her psychiatric medications and taking about a liter of vodka a day. Patient was positive for benzodiazepines and THC in her urine drug screen and also elevated liver enzymes and blood alcohol level was at 76 on admission. Patient was seen in the ER on her head and agreeable to street conventional mortgage underwriter. Patient was having tremors in her hands and appeared to be anxious and somewhat irritable. She was focused on discharge and was minimizing her need for hospitalization. She states that she felt "alone" at home and states that h er boyfriend had left to go on a 16 day trip to the [facility]. She states that she has a "problem with alcohol" and has been drinking heavily recently. She states that she also recently lost her job however was nonspecific of what happened. She claims that she stopped taking her medications because "I wanted to drink". She states that she called the ambulance herself because she was "short of breath panicking and seeing things". She claims that she does have a history of withdrawals from alcohol and also severe depression and anxiety. She was minimizing her symptoms and repeatedly demanded discharge. Very poor insight and judgment. Claims that her sleep has been poor and appetite is very poor. She is denying any suicidal thoughts at this time and denying any HI. she is denying any VH or any AH. she claims that she drinks etoh as noted above and smokes marijuana frequently." Patient was seen today in the hallways and agreeable to speak to conventional mortgage underwriter. She continues to be tearful and claims that she is feeling depressed. She claims that she does have elevated levels of anxiety mainly being on the unit. We spoke about the different medication options including BuSpar and Vistaril. She claims that she wants to get into an outpatient treatment program once she is discharged. She states that she is not interested in doing inpatient rehab. She claims that she did not sleep well last night. Claims that her appetite has gradually been improving. She continues to be tearful at times during the interview and states that she is scared about her alcohol abuse however is thankful to be on the inpatient unit receiving help and medications. She is denying any current suicidal thoughts intention or plan. She is denying any homicidal ideations. Denying any auditory or visual hallucinations. She states that her tremor is a bit better today from the withdrawals." Hospital course: Upon admission to the unit patient was directable and agreeable to commence treatment and signed adult voluntary form. Patient got along well with other patients on the unit and followed unit protocol. Patient was compliant with the medications and denied any side effects throughout hospital course. Patient was started on trazodone 100 mg daily at bedtime for mood/insomnia, BuSpar 20 mg twice a day for anxiety, Prozac was discontinued and replaced with Cymbalta 20 mg twice a day for mood/anxiety/pain, acamprosate 666 mg 3 times a day for alcohol cravings. Vistaril was used as needed for anxiety. Patient was placed on Librium scheduled for alcohol withdrawal with CIWA protocol and was gradually tapered off prior to discharge. Patient spoke of her stressors and engaged in therapy both group and individual. Patient was also seen by medical team for history and physical exam. Throughout the course of the hospitalization patient gradually improved with regards to mood, anxiety, mood lability, sleep and became more future oriented with improved insight and judgment. On the day of discharge patient denied any suicidal or homicidal ideations intent or plan denied any auditory or visual hallucinations. Patient endorsed wanting to live for her future and her family. The patient denied any access to guns or weapons. Patient denied any paranoia and did not endorse any delusions. Patient does have a significant history of substance abuse and was counseled on abstaining from all substances including alcohol and marijuana. Patient was offered however declined inpatient substance-abuse rehab. Patient claims that she wants to do outpatient substance use treatment through [facility] and [facility]. Patient was also counseled on the medications and need for regular compliance and was encouraged to follow-up with their outpatient appointment for mental health and also for primary care. Mental status exam: General Appearance: Patient appears to be thin,stated age is alert, pleasant, and cooperative. Patient is in no acute distress and has improved hygiene and grooming Behavior: Patient is calmly seated without any agitated behavior. Speech: Patient's speech is fluent and nonpressured. Mood/Affect: Patient reports their mood is "better", affect is congruent and euthymic. Suicidality/Homicidality: Patient denies having any suicidal or homicidal ideation intent or plan. Perceptions: Patient denies any auditory or visual hallucinations. Though content/process: There is no evidence of any delusional thought content and thought process is linear and goal-directed. more future oriented Memory and concentration: AOX3, grossly intact for the purposes of this session. Can spell "WORLD" backwards correctly. Judgment and insight: chronically poor/impuslive, however has improved with guarded prognosis Impression: Depressive disorder unspecified Alcohol use disorder, severe dependence Borderline personality disorder Cannabis use disorder Nicotine dependence Plan: -Continue with discharge today as patient has improved and stabilized psychiatrically and is not currently an imminent threat to herself and/or others. Patient will remain at chronically elevated risk for harm to self and/or others due to her impulsivity and substance abuse. -Continue medications: Trazodone 100 mg daily at bedtime for mood/insomnia, BuSpar 20 mg 3 times a day for anxiety, Cymbalta 20 mg twice a day for mood/anxiety/pain, acamprosate 666 mg 3 times a day for alcohol cravings, Vistaril 25 mg twice a day when necessary for anxiety. -Patient was counseled on the need for medication compliance and appropriate follow-up at mental health and also primary care for medical issues. Patient verbalized understanding and agreed. -Social work to arrange for and conduct family meeting to ensure safety upon discharge and answer any questions/concerns. Social work also to arrange for patients follow up appointments with [facility] for psychiatric care along with follow up with primary care provider. -Patient counseled on abstaining from recreational drugs and marijuana and al cohol. Was informed/educated on the adverse effects on their physical and mental health. Patient verbally agreed and understood. Patient was offered substance abuse treatment however declined at this time. Patient claims that she is interested in outpatient subtance use treatment. -Patient was instructed to return to the hospital or seek immediate medical care if their psychiatric or medical symptoms do worsen or reoccur. Allergies Allergy/AdvReac Type Severity Reaction Status Date / Time lamotrigine [From Lamictal] Allergy Astorga-Yannick Verified 05/23/22 14:40 Syndrome lithium Allergy Astorga-Yannick Verified 05/23/22 14:40 Syndrome Sulfa (Sulfonamide Allergy Astorga-Yannick Verified 05/23/22 14:40 Antibiotics) Syndrome Laboratory Results Estimated Ave Glu mg/dL 104 05/25/22 07:24 Hemoglobin A1c 5.3 % (0.0-6.0) 05/25/22 07:24 Triglycerides 121.00 mg/dL (0.00-149.00) 05/25/22 07:24 Cholesterol 286.00 mg/dL (0.00-200.00) H 05/25/22 07:24 LDL Cholesterol, Calc 159.8 mg/dL (0.0-131.0) H 05/25/22 07:24 VLDL Cholesterol, Calc 24.20 mg/dL (5.00-40.00) 05/25/22 07:24 HDL Cholesterol 102.00 mg/dL (40.00-60.00) H 05/25/22 07:24 Cholesterol/HDL Ratio 2.80 Ratio 05/25/22 07:24 TSH 1.340 mIU/L (0.465-4.680) 05/25/22 07:24 Coronavirus (PCR) Not Detected (Not Detectd) 05/25/22 14:10 Vital Signs Temp 97.1 F L 05/27/22 07:02 Pulse 80 05/27/22 07:02 Resp 16 05/27/22 07:02 BP 89/53 05/27/22 07:02 Pulse Ox 95 05/27/22 07:02 FiO2 Intake & Output 05/26/22 05/27/22 05/27/22 18:59 06:59 18:59 Weight 75.75 kg Patient Condition at Discharge: Stable Plan - Discharge Summary New Discharge Prescriptions: New DULoxetine HCL [Cymbalta] 20 mg PO BID 30 Days cap traZODone HCL [Desyrel] 100 mg PO HS 30 Days tab hydrOXYzine pamoate [Vistaril] 25 mg PO BID PRN 30 Days cap PRN Reason: Anxiety busPIRone HCl [Buspar] 20 mg PO TID 30 Days tab Acamprosate Calcium [Campral] 666 mg PO TID 30 Days tab Nicotine 14Mg/24Hr Patch [Habitrol] 1 patch TRANSDERM DAILY 14 Days patch Continue Folic Acid 1 mg PO DAILY 30 Days tab Multivitamins, Thera [Multivitamin (formulary)] 1 each PO DAILY 30 Days tab Thiamine [Vitamin B-1] 100 mg PO DAILY 30 Days tab Discontinued chlordiazePOXIDE HCl [Librium] 20 mg PO TID cap Discharge Medication List Acamprosate Calcium [Campral] 666 mg PO TID 30 Days tab 05/27/22 [Rx] DULoxetine HCL [Cymbalta] 20 mg PO BID 30 Days cap 05/27/22 [Rx] Folic Acid 1 mg PO DAILY 30 Days tab 05/27/22 [Rx] Multivitamins, Thera [Multivitamin (formulary)] 1 each PO DAILY 30 Days tab 05/27/22 [Rx] Nicotine 14Mg/24Hr Patch [Habitrol] 1 patch TRANSDERM DAILY 14 Days patch 05/27/22 [Rx] Thiamine [Vitamin B-1] 100 mg PO DAILY 30 Days tab 05/27/22 [Rx] busPIRone HCl [Buspar] 20 mg PO TID 30 Days tab 05/27/22 [Rx] hydrOXYzine pamoate [Vistaril] 25 mg PO BID PRN 30 Days cap 05/27/22 [Rx] traZODone HCL [Desyrel] 100 mg PO HS 30 Days tab 05/27/22 [Rx] Follow up Appointment(s)/Referral(s): Vasquez Sneed [Other] - 05/31/22 11:00 am Hardy Schuster MD [Primary Care Provider] - 1 Week Patient Instructions/Handouts: Depression (DC), Alcohol Intoxication (DC) Activity/Diet/Wound Care/Special Instructions: Activity and diet as tolerated. Avoid the use of street drugs and alcohol. Take all medications as prescribed. When you are in need of refills on your medications please contact your medical provider and/or outpatient psychiatrist to have this done. Please go to scheduled outpatient appointment for aftercare treatment. If symptoms return or become worse, call the crisis line at [phone] and/or go to the nearest emergency room for evaluation Discharge/Stand Alone Forms: AA Meetings [place] Discharge Disposition: HOME SELF-CARE
[2022-05-27 12:00] VITALS: BP 115/77; PULSE 116; TEMP 97.4
== END 2022-05-27 12:07 | disposition home or self-care (01) | DRG 880 ==
LOC: 3MHU 20:05
PROVIDERS: ADMIT Psychiatry & Neurology Psychiatry; ATTEND Psychiatry & Neurology Psychiatry
DX: F99 Mental disorder, not otherwise specified (principal); R45.851 Suicidal ideations; F10.239 Alcohol dependence with withdrawal, unspecified; Q43.1 Hirschsprung's disease; F32.9 Major depressive disorder, single episode, unspecified; G47.00 Insomnia, unspecified; F41.9 Anxiety disorder, unspecified; F17.210 Nicotine dependence, cigarettes, uncomplicated; F12.10 Cannabis abuse, uncomplicated; F60.3 Borderline personality disorder; Z79.899 Other long term (current) drug therapy; Z82.49 Family history of ischemic heart disease and other diseases of the circulatory system; Z28.310 Unvaccinated for COVID-19; Z20.822 Contact with and (suspected) exposure to COVID-19; Z28.21 Immunization not carried out because of patient refusal; Z71.41 Alcohol abuse counseling and surveillance of alcoholic; Z56.0 Unemployment, unspecified; Z88.2 Allergy status to sulfonamides; Z88.8 Allergy status to other drugs, medicaments and biological substances
CPT/HCPCS: 80061; 83036; 84443; 87635; 93005

== ENCOUNTER 2022-07-05 15:07 | Inpatient (IN) | payer MEDICAID, OTHER ==
--- NOTE | 2022-07-05 16:18 | XR ---
EXAMINATION TYPE: XR hand complete LT DATE OF EXAM: 07/05/2022 4:15 PM INDICATION: Patient age:Female; 26 years old; Reason for study: Trauma, lacerations; PHH. COMPARISON: None TECHNIQUE: Frontal, lateral and oblique views of the left hand were obtained. FINDINGS: Normal alignment of the visualized joints. No acute osseous pathology is identified. No e vidence of soft tissue swelling. No radiopaque foreign body. IMPRESSION: No acute osseous pathology.
[2022-07-05 16:35] LABS: Amphetamine Screen,Urine Not Detected (NotDetected); Barbiturate Screen,Urine Not Detected (NotDetected); Benzodiazepines Screen,Urine Detected (NotDetected); Cocaine Screen,Urine Not Detected (NotDetected); Methadone Screen, Urine Not Detected (NotDetected); Opiate Screen,Urine Not Detected (NotDetected); Oxycodone Screen, Urine Not Detected (NotDetected); Phencyclidine Screen,Urine Not Detected (NotDetected); Tricyclic Antidepressant,Urine Not Detected (NotDetected); Urn Cannabinoid Scrn Detected (NotDetected)
[2022-07-05] MEDS ORDERED: LORazepam 1 MG TAB PO STA (17:22)
--- NOTE | 2022-07-05 19:08 | ED ---
General Adult HPI - General Chief complaint: Psychiatric Symptoms Stated complaint: mental health,petition Time Seen by Provider: 07/05/22 15:08 Source: patient, EMS Mode of arrival: EMS - History of Present Illness Initial comments: This is a 26-year-old female who was brought into the emergency department by police after was noted that she was yelling, screaming at her neighbor's when she was around her house. The patient stated that she "just want to be left alone and her neighbors wouldn't leave her the fuck alone." Police stated that the patient was aggressive and did make threats to shoot them earlier today. The patient was in handcuffs on arrival and was cooperative. The patient is a past medical history including bipolar disorder and has not had her medications in over 1 week. The patient stated that she attempted to do this but stated that she has had issues with her physicians. He has been noted that the patient also had similar episodes like this when her friend gets deployed to the [employer] and was planned to be deployed today. The patient herself denied any homicidal or suicidal ideations. The patient did however state that she punched her left hand through the glass plate on the wall because her neighbors would not leave her alone. The patient denied any acute pain in the hand however. There was dried blood on the hand without any noted bleeding. - Related Data Home Medications Medication Instructions Recorded Confirmed Acamprosate Calcium [Campral] 333 mg PO TID 07/05/22 07/05/22 Multivitamins, Thera [Multivitamin 1 tab PO DAILY 07/05/22 07/05/22 (formulary)] busPIRone HCL [Buspar] 30 mg PO BID 07/05/22 07/05/22 Previous Rx's Medication Instructions Recorded DULoxetine HCL [Cymbalta] 20 mg PO BID 30 Days cap 05/27/22 Folic Acid 1 mg PO DAILY 30 Days tab 05/27/22 Thiamine [Vitamin B-1] 100 mg PO DAILY 30 Days tab 05/27/22 hydrOXYzine pamoate [Vistaril] 25 mg PO BID PRN 30 Days cap 05/27/22 traZODone HCL [Desyrel] 100 mg PO HS 30 Days tab 05/27/22 Allergies Allergy/AdvReac Type Severity Reaction Status Date / Time lamotrigine [From Lamictal] Allergy Astorga-Yannick Verified 05/23/22 14:40 Syndrome lithium Allergy Astorga-Yannick Verified 05/23/22 14:40 Syndrome Sulfa (Sulfonamide Allergy Astorga-Yannick Verified 05/23/22 14:40 Antibiotics) Syndrome Review of Systems ROS Statement: Those systems with pertinent positive or pertinent negative responses have been documented in the HPI. ROS Other: All systems not noted in ROS Statement are negative. Past Medical History Past Medical History: Unable to Obtain Additional Past Medical History / Comment(s): lupus History of Any Multi-Drug Resistant Organisms: Unobtainable Past Surgical History: No Surgical Hx Reported Past Psychological History: Anxiety, Depression Smoking Status: Light tobacco smoker, Vaper Past Alcohol Use History: Unable to Obtain Past Drug Use History: Unable to Obtain - Past Family History Mother Family Medical History: Hypertension General Exam Limitations: no limitations General appearance: alert, in no apparent distress Head exam: Present: atraumatic, normocephalic, normal inspection Eye exam: Present: normal appearance, PERRL Pupils: Present: normal accommodation ENT exam: Present: normal exam, normal oropharynx, mucous membranes moist Neck exam: Present: normal inspection, full ROM Respiratory exam: Present: normal lung sounds bilaterally Cardiovascular Exam: Present: regular rate, normal rhythm, normal heart sounds GI/Abdominal exam: Present: soft, normal bowel sounds Extremities exam: Present: normal inspection, full ROM, normal capillary refill Back exam: Present: normal inspection Neurological exam: Present: alert, oriented X3, CN II-XII intact Psychiatric exam: Present: normal affect, anxious Skin exam: Present: warm, dry Course Vital Signs 07/05/22 07/05/22 15:09 18:36 Temperature 98.2 F Pulse Rate 121 H 99 Respiratory 18 18 Rate Blood Pressure 156/94 104/60 O2 Sat by Pulse 98 99 Oximetry Medical Decision Making - Medical Decision Making Was pt. sent in by a medical professional or institution (, PA, TIME RECORDER, urgent care, hospital, or usp...) When possible be specific @ -Yes, police Did you speak to anyone other than the patient for history (EMS, parent, family, police, friend...)? What history was obtained from this source @ -Police and EMS Did you review nursing and triage notes (agree or disagree)? Why? @ -I reviewed and agree with nursing and triage notes Were old charts reviewed (outside hosp., previous admission, EMS record, old EKG, old radiological studies, urgent care reports/EKG's, usp records)? Report findings @ -No old charts were reviewed Differential Diagnosis (chest pain, altered mental status, abdominal pain women, abdominal pain men, vaginal bleeding, weakness, fever, dyspnea, syncope, headache, dizziness, GI bleed, back pain, seizure, CVA, palpatations, mental health)? @ -Acute psychosis, polysubstance abuse, EtOH intoxication EKG interpreted by me (3pts min.). @ -None X-rays interpreted by me (1pt min.). @ -X-ray of the left hand was obtained was interpreted by myself showing no acute process or fractures. CT interpreted by me (1pt min.). @ -None done U/S interpreted by me (1pt. min.). @ -None done What testing was considered but not performed or refused? (CT, X-rays, U/S, labs)? Why? @ -None What meds were considered but not given or refused? Why? @ -None Did you discuss the management of the patient with other professionals (professionals i.e. , PA, TIME RECORDER, lab, RT, psych nurse, social studies teacher, pararescue craftsman, teacher, conservation officer, rn field case manager)? Give summary @ -Yes, EPS nurse Was smoking cessation discussed for >3mins.? @ -Yes Was critical care preformed (if so, how long)? @ -No Were there social determinants of health that impacted care today? How? (Homelessness, low income, unemployed, alcoholism, drug addiction, transportation, low edu. Level, literacy, decrease access to med. care, prison, rehab)? @ -No Was there de-escalation of care discussed even if they declined (Discuss DNR or withdrawal of care, Hospice)? DNR status @ -No What co-morbidities impacted this encounter? (DM, HTN, Smoking, COPD, CAD, Cancer, CVA, ARF, Chemo, Hep., AIDS, mental health diagnosis, sleep apnea, morbid obesity)? @ -Bipolar disorder, anxiety, depression Was patient admitted / discharged? Hospital course, mention meds given and route, prescriptions, significant lab abnormalities, going to OR and other pertinent info. @ -The patient was seen and evaluated emergency department. Physical exam, the patient was anxious however was able to answer all questions appropriately. The patient denied any suicidal or homicidal ideations. The patient's left hand was thoroughly cleaned and was noted to have a minor abrasion noted to the left thumb. There was no wound needed to be sutured at this time. The patient had an up-to-date tetanus booster. EPS to evaluate the patient as the patient was petitioned by police. They did recommend inpatient admission and the patient was told of this plan and was ultimately agreeable to this. The patient was admitted in stable condition. I did place a clinical certificate on the patient as well. Undiagnosed new problem with uncertain prognosis? @ -No Drug Therapy requiring intensive monitoring for toxicity (Heparin, Nitro, Insulin, Cardizem)? @ -No Were any procedures done? @ -No Diagnosis/symptom? @ -Acute psychosis Acute, or Chronic, or Acute on Chronic? @ -Acute Uncomplicated (without systemic symptoms) or Complicated (systemic symptoms)? @ -Uncomplicated Side effects of treatment? @ -No Exacerbation, Progression, or Severe Exacerbation? @ -No Poses a threat to life or bodily function? How? (Chest pain, USA, MT, pneumonia, PE, COPD, DKA, ARF, appy, cholecystitis, CVA, Diverticulitis, Homicidal, Suicidal, threat to staff... and all critical care pts) @ -Yes, no insight into her current condition - Lab Data Lab Results 07/05/22 07/05/22 Range/Units 15:53 17:24 Urine Opiates Screen Not Detected (NotDetected) Ur Oxycodone Screen Not Detected (NotDetected) Urine Methadone Screen Not Detected (NotDetected) Ur Propoxyphene Screen Not Detected (NotDetected) Ur Barbiturates Screen Not Detected (NotDetected) U Tricyclic Antidepress Not Detected (NotDetected) Ur Phencyclidine Scrn Not Detected (NotDetected) Ur Amphetamines Screen Not Detected (NotDetected) U Methamphetamines Scrn Not Detected (NotDetected) U Benzodiazepines Scrn Detected H (NotDetected) Urine Cocaine Screen Not Detected (NotDetected) U Marijuana (THC) Screen Detected H (NotDetected) Coronavirus (PCR) Not Detected (Not Detectd) Disposition Clinical Impression: Acute psychosis Disposition: ADMITTED IP TO THIS HOSP Condition: Stable Referrals: None,Stated [Primary Care Provider] - 1-2 days Time of Disposition: 17:00 Decision to Admit Reason: Admit from EC Decision Date: 07/05/22 Decision Time: 17:00
[2022-07-05] MEDS ORDERED: MAG HYDROX/AL HYDROX/SIMETH 30 ML CUP PO PRN (22:22)
[2022-07-05] MEDS ORDERED: ACETAMINOPHEN TAB 325 MG TAB PO PRN (22:22)
[2022-07-05] MEDS ORDERED: MAGNESIUM HYDROXIDE 2,400 MG/10 ML CUP PO PRN (22:22)
[2022-07-05] MEDS ORDERED: LORazepam 2 MG/ML INJ IM PRN (22:27)
[2022-07-05] MEDS ORDERED: haloperidoL 5 MG TAB PO PRN (22:28)
[2022-07-05] MEDS ORDERED: HALOPERIDOL LACTATE 5 MG/ML 1 ML VIAL IM PRN (22:28)
[2022-07-05] MEDS: chlordiazePOXIDE 25 MG CAP PO SCH (22:52)
[2022-07-06] MEDS: NICOTINE 14MG/24HR PATCH TRANSDERM SCH (08:38)
[2022-07-06] MEDS: DULoxetine HCL 20 MG CAPSULE.DR PO SCH ×2 (08:39→20:40)
[2022-07-06] MEDS: busPIRone HCl 10 MG TAB PO SCH ×2 (08:39→20:41)
[2022-07-06] MEDS: FOLIC ACID 1 MG TAB PO SCH (08:39)
[2022-07-06] MEDS: chlordiazePOXIDE 25 MG CAP PO SCH ×2 (08:39→16:20)
[2022-07-06] MEDS: THIAMINE 100 MG TAB PO SCH (08:39)
[2022-07-06] MEDS: ACAMPROSATE CALCIUM 333 MG TABLET.DR PO SCH ×3 (08:39→20:40)
[2022-07-06] MEDS: MULTIVITAMINS, THERA 1 EACH TAB PO SCH (08:44)
[2022-07-06] MEDS ORDERED: hydrOXYzine pamoate 25 MG CAP PO PRN (09:00)
[2022-07-06 11:31] LABS: Basophils % (A) 0 %; Eosinophils # (A) 0.1 k/uL (0-0.7); Eosinophils % (A) 1 %; HCT 41.9 % (34.0-46.0); HGB 13.3 gm/dL (11.4-16.0); Lymphocytes # (A) 1.4 k/uL (1.0-4.8); Lymphocytes % (A) 18 %; MCH 29.7 pg (25.0-35.0); MCHC 31.6 g/dL (31.0-37.0); MCV 93.9 fL (80.0-100.0); Mean Platelet Volume 7.5; Monocytes # (A) 0.4 k/uL (0-1.0); Monocytes % (A) 5 %; Neutrophils # (A) 5.8 k/uL (1.3-7.7); Neutrophils % (A) 73 %; Platelet Count 320 k/uL (150-450); RBC 4.46 m/uL (3.80-5.40); WBC 7.9 k/uL (3.8-10.6)
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
[2022-07-06 11:45] LABS: Albumin 5.2 g/dL (3.5-5.0); Chloride 99 mmol/L (98-107); Potassium 4.5 mmol/L (3.5-5.1); Sodium 132 mmol/L (137-145)
[2022-07-06 12:02] LABS: ALT 46 U/L (4-34); AST 38 U/L (14-36); African American GFR (CKD) >90 (>60 ml/min/1.73 sqM); Alkaline Phosphatase 109 U/L (38-126); Anion Gap 23 mmol/L; Blood Urea Nitrogen 7 mg/dL (7-17); Calcium 9.5 mg/dL (8.4-10.2); Carbon Dioxide 10 mmol/L (22-30); Glucose 71 mg/dL (74-99); Non-African American GFR(CKD) >90 (>60 ml/min/1.73 sqM); Total Bilirubin 1.3 mg/dL (0.2-1.3); Total Protein 8.3 g/dL (6.3-8.2)
[2022-07-06] MEDS: LORazepam 1 MG TAB PO PRN (20:02)
[2022-07-06] MEDS: traZODone HCL 100 MG TAB PO SCH ×2 (20:40)
[2022-07-06] MEDS ORDERED: traZODone HCL 100 MG TAB PO SCH (21:00)
--- NOTE | 2022-07-07 01:15 | P.PN ---
Progress Note - Text Progress Note Date: 07/07/22 The patient refused to be seen or be evaluated. Will attempt again tomorrow.
[2022-07-07] MEDS: chlordiazePOXIDE 25 MG CAP PO SCH ×4 (07:50→21:14)
[2022-07-07] MEDS: FOLIC ACID 1 MG TAB PO SCH (08:39)
[2022-07-07] MEDS: NICOTINE 14MG/24HR PATCH TRANSDERM SCH (08:39)
[2022-07-07] MEDS: busPIRone HCl 10 MG TAB PO SCH ×3 (08:39→20:30)
[2022-07-07] MEDS: MULTIVITAMINS, THERA 1 EACH TAB PO SCH (08:39)
[2022-07-07] MEDS: DULoxetine HCL 20 MG CAPSULE.DR PO SCH (08:39)
[2022-07-07] MEDS: ACAMPROSATE CALCIUM 333 MG TABLET.DR PO SCH ×3 (08:39→20:30)
[2022-07-07] MEDS: THIAMINE 100 MG TAB PO SCH (08:39)
--- NOTE | 2022-07-07 10:14 | P.PN ---
Progress Note - Text Progress Note Date: 07/07/22 Interval History: Patient was seen lying in bed this morning and was directable and agreeable to speak with data analyst report writer in the office. Patient claims that she was able to sleep a little better last night. She was asking if she could have her BuSpar changed to 20 mg 3 times a day instead of twice a day. We spoke about increasing her Cymbalta. She continues to minimize her mood and anxiety. She claims that she is not having tremors or withdrawal symptoms at this time however is tachycardic. She did refuse her Librium last night and also this morning. She was apologetic for refusing and claims that she will take it. She claims that she has been going to some groups however seemed disinterested. She claims that she had a argument with her significant other yesterday when he came to visit and states that "he's upset at me" and was fairly vague about the rest of the conversation. She continues to focus on discharge and minimize her need for hospitalization. At this time patient denies any suicidal or homical ideations, intent or plan. Patient denies any auditory, visual hallucinations and denies any paranoia or delusions. Patient denies any side effects from the medications and has been compliant with meds. Mental Status Exam: General Appearance: Patient appears to be unkempt, stated age is alert, directable, superficial and anxious. not tearful today. Patient appears to have mildly improving hygiene and grooming. Behavior: Patient is seated without any agitated behavior. less argumentative Speech: Patient's speech is fluent and nonpressured Mood/Affect: Patient reports their mood is depressed, improving mildly, affect is congruent and constricted Suicidality/Homicidality: Patient denies having any homicidal ideation intent or plan. Denies any suicidal ideation currently, no intent or plan. Perceptions: Patient denies any visual hallucinations and denies auditory hallucinations Though content/process: There is no evidence of any delusional thought content and thought process is linear and goal-directed. focused on discharge Memory and concentration: AOX3, grossly intact for the purposes of this session. Judgment and insight: Poor/superficial, improving mildly IMPRESSIONS: Depressive disorder NOS Alcohol use disorder, severe Borderline personality disorder cannabis use disorder nicotine dependence Plan: -Patient continues to meet criteria for inpatient psychiatric admission for symptom stabilization and safety. Patient has not signed adult voluntary form and medication consent and was placed in patient's chart. -Medications: Trazodone 100 mg daily at bedtime for mood/insomnia, change BuSpar 20 mg three times a day for anxiety, increase cymbalta 60 mg qhs for mood/anxiety, acamprosate 666 mg 3 times a day for alcohol cravings. continue Librium 25 mg 3 times a day for alcohol withdrawal and continue tapering down tomorrow. vistaril prn for anxiety -thiamine, MVM for etoh use -CIWA protocol with Ativan PRN for ETOH withdrawal -When necessary Ativan and Haldol for agitation/aggression. -NRT - nicotine patch -SW on board for discharge planning. Encouraged the patient to participate in milieu. Currently awaiting deferral with lan engineer and court date.
[2022-07-07] MEDS: traZODone HCL 100 MG TAB PO SCH (20:30)
[2022-07-07] MEDS: DULoxetine HCL 60 MG CAPSULE.DR PO SCH (20:30)
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
[2022-07-08 06:39] VITALS: RESP 16
[2022-07-08] MEDS: MULTIVITAMINS, THERA 1 EACH TAB PO SCH (08:22)
[2022-07-08] MEDS: ACAMPROSATE CALCIUM 333 MG TABLET.DR PO SCH ×3 (08:22→20:34)
[2022-07-08] MEDS: NICOTINE 14MG/24HR PATCH TRANSDERM SCH (08:22)
[2022-07-08] MEDS: FOLIC ACID 1 MG TAB PO SCH (08:22)
[2022-07-08] MEDS: busPIRone HCl 10 MG TAB PO SCH ×3 (08:23→20:34)
[2022-07-08] MEDS: THIAMINE 100 MG TAB PO SCH (08:23)
[2022-07-08] MEDS: chlordiazePOXIDE 25 MG CAP PO SCH (08:24)
[2022-07-08] MEDS ORDERED: hydrOXYzine pamoate 25 MG CAP PO PRN (10:42)
[2022-07-08] MEDS: LORazepam 1 MG TAB PO PRN (11:18)
--- NOTE | 2022-07-08 11:21 | P.PN ---
Progress Note - Text Progress Note Date: 07/08/22 Interval History: Patient was seen lying in bed this morning and was directable and agreeable to speak with writer producer in the office. Patient continues to have elevated heart rate and continues to be on Librium at this time. She continues to be argumentative with greater focus on discharge and continues to have fairly poor insight and judgment. Patient claims that she is not interested in going to inpatient rehab and wants outpatient. She continues to minimize her drinking. At this time. S he was also minimizing her mood and anxiety. She claims that she is going to some groups. She asked several times during the interview if she can go home. She continues to be tachycardic. she was fairly vague about the rest of the conversation. She was minimize her need for hospitalization. At this time patient denies any suicidal or homical ideations, intent or plan. Patient denies any auditory, visual hallucinations and denies any paranoia or delusions. she remains impuslive and tearful at times during the interview. Patient denies any side effects from the medications and has been compliant with meds. Mental Status Exam: General Appearance: Patient appears to be unkempt, stated age is alert, directable, superficially cooperative, demanding at times. she was tearful today. Patient appears to have mildly improving hygiene and grooming. Behavior: Patient is seated without any agitated behavior. demanding, superficial Speech: Patient's speech is fluent and nonpressured Mood/Affect: Patient reports their mood is improving mildly, affect is congruent and tearful at times. upset Suicidality/Homicidality: Patient denies having any homicidal ideation intent or plan. Denies any suicidal ideation currently, no intent or plan. Perceptions: Patient denies any visual hallucinations and denies auditory hallucinations Though content/process: There is no evidence of any delusional thought content and thought process is linear and goal-directed. focused on discharge and minimizing her drinking and need for treatment. Memory and concentration: AOX3, grossly intact for the purposes of this session. Judgment and insight: Poor/superficial IMPRESSIONS: Depressive disorder NOS Alcohol use disorder, severe Borderline personality disorder cannabis use disorder nicotine dependence Plan: -Patient continues to meet criteria for inpatient psychiatric admission for symptom stabilization and safety. Patient has not signed adult voluntary form and medication consent and was placed in patient's chart. -Medications: Trazodone 100 mg daily at bedtime for mood/insomnia, BuSpar 20 mg three times a day for anxiety, cymbalta 60 mg qhs for mood/anxiety, continue acamprosate 666 mg 3 times a day for alcohol cravings. decrease Librium 20 mg 3 times a day for alcohol withdrawal and continue tapering down tomorrow and throughout the weekend. vistaril prn for anxiety -thiamine, MVM for etoh use -CIWA protocol with Ativan PRN for ETOH withdrawal -When necessary Ativan and Haldol for agitation/aggression. -NRT - nicotine patch -SW on board for discharge planning. Encouraged the patient to participate in milieu. patient deferred with her transplant surgeon and is agreeable to treatment. she is refusing inpatient rehab and wants to do outpatient [facility] treatment. Patient continues to be impulsive, labile/emotional and minimizing her need for hospitalization or need for treatment. possibly discharge monday if patient does well over the weekend as we continue to wean her down from librium and watch her vitals closely.
[2022-07-08] MEDS: DULoxetine HCL 60 MG CAPSULE.DR PO SCH (20:34)
[2022-07-08] MEDS: traZODone HCL 100 MG TAB PO SCH (20:34)
[2022-07-09] MEDS: ACAMPROSATE CALCIUM 333 MG TABLET.DR PO SCH ×3 (08:27→20:31)
[2022-07-09] MEDS: busPIRone HCl 10 MG TAB PO SCH ×3 (08:28→20:32)
[2022-07-09] MEDS: NICOTINE 14MG/24HR PATCH TRANSDERM SCH (08:28)
[2022-07-09] MEDS: THIAMINE 100 MG TAB PO SCH (08:28)
[2022-07-09] MEDS: FOLIC ACID 1 MG TAB PO SCH (08:28)
[2022-07-09] MEDS: MULTIVITAMINS, THERA 1 EACH TAB PO SCH (08:28)
[2022-07-09] MEDS: DULoxetine HCL 60 MG CAPSULE.DR PO SCH (20:32)
[2022-07-09] MEDS: traZODone HCL 100 MG TAB PO SCH (20:32)
--- NOTE | 2022-07-09 22:01 | P.PN ---
Progress Note - Text Progress Note Date: 07/09/22 Interval history: Patient was seen attending group and was directable and agreeable to speak with technical proposal writer. She reports mood is "better", her anxiety is "better", and reports improved sleep and appetite. She denies alcohol withdrawal symptoms. At this time patient denies any suicidal or homicidal ideation, intent or plan. Denies any auditory or visual hallucinations. Patient denies any side effects from the medications and has been compliant with meds. She is hopeful for discharge on Monday. Mental status exam: General Appearance: Patient appears to be stated age, dressed in clean casual attire, adequate hygiene/grooming. Behavior: No agitated behavior. Patient is calm and directable. Speech: Patient's speech is fluent and non-pressured. Mood/Affect: Mood is improving mildly, affect is congruent and constricted. Suicidality/Homicidality: Patient denies having any suicidal or homicidal ideation intent or plan. Perceptions: Patient denies any auditory or visual hallucinations. Though content/process: There is no evidence of any delusional thought content and thought process is linear and goal-directed. Memory and concentration: AOX3, grossly intact for the purposes of this session Judgment and insight: improving mildly Assessment/Plan: Continue with current diagnosis. Patient continues to meet criteria for inpatient psychiatric admission for symptom stabilization and safety. Discontinue Librium 10 mg TID since alcohol withdrawal symptoms have subsided. Monitor for medication compliance and for any psychotropic medication side effects. Will continue to monitor ongoing response to treatment. Encouraged participation in milieu.
[2022-07-10 06:36] VITALS: TEMP 97.6
[2022-07-10] MEDS: NICOTINE 14MG/24HR PATCH TRANSDERM SCH (08:24)
[2022-07-10] MEDS: THIAMINE 100 MG TAB PO SCH (08:24)
[2022-07-10] MEDS: FOLIC ACID 1 MG TAB PO SCH (08:24)
[2022-07-10] MEDS: busPIRone HCl 10 MG TAB PO SCH ×3 (08:24→20:47)
[2022-07-10] MEDS: ACAMPROSATE CALCIUM 333 MG TABLET.DR PO SCH ×3 (08:24→20:47)
[2022-07-10] MEDS: MULTIVITAMINS, THERA 1 EACH TAB PO SCH (08:24)
[2022-07-10] MEDS: DULoxetine HCL 60 MG CAPSULE.DR PO SCH (20:47)
[2022-07-10] MEDS ORDERED: traZODone HCL 50 MG TAB PO SCH (21:00)
--- NOTE | 2022-07-10 22:48 | P.PN ---
Progress Note - Text Progress Note Date: 07/10/22 Interval history: Patient was seen resting in her bed and was directable and agreeable to speak with verse writer. She reports mood is "great", her anxiety is "better", but reports trouble staying asleep all night and requests and increase in her Seroquel. She also reports her Buspar was 30 mg TID at home and is only getting 20 mg TID here. She denies alcohol withdrawal symptoms. At this time patient denies any suicidal or homicidal ideation, intent or plan. Denies any auditory or visual hallucinations. Patient denies any side effects from the medications and has been compliant with meds. She is hopeful for discharge on Monday. Vital signs reviewed and are stable. Mental status exam: General Appearance: Patient appears to be stated age, dressed in clean casual attire, adequate hygiene/grooming. Behavior: No agitated behavior. Patient is calm and directable. Speech: Patient's speech is fluent and non-pressured. Mood/Affect: Mood is improving mildly, affect is congruent and constricted. Suicidality/Homicidality: Patient denies having any suicidal or homicidal id eation intent or plan. Perceptions: Patient denies any auditory or visual hallucinations. Though content/process: There is no evidence of any delusional thought content and thought process is linear and goal-directed. Memory and concentration: AOX3, grossly intact for the purposes of this session Judgment and insight: improving mildly Assessment/Plan: Continue with current diagnosis. Patient continues to meet criteria for inpatient psychiatric admission for symptom stabilization and safety. Increase Trazodone from 100 mg QHS to 150 mg QHS for sleep. Monitor for medication compliance and for any psychotropic medication side effects. Will continue to monitor ongoing response to treatment. Encouraged participation in milieu.
[2022-07-11 06:42] VITALS: BP 97/53; PULSE 91
[2022-07-11] MEDS: FOLIC ACID 1 MG TAB PO SCH (08:25)
[2022-07-11] MEDS: MULTIVITAMINS, THERA 1 EACH TAB PO SCH (08:25)
[2022-07-11] MEDS: THIAMINE 100 MG TAB PO SCH (08:25)
[2022-07-11] MEDS: busPIRone HCl 10 MG TAB PO SCH (08:25)
[2022-07-11] MEDS: ACAMPROSATE CALCIUM 333 MG TABLET.DR PO SCH (08:25)
[2022-07-11] MEDS: NICOTINE 14MG/24HR PATCH TRANSDERM SCH (08:25)
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
== END 2022-07-11 12:47 | disposition home or self-care (01) | DRG 881 ==
LOC: EC 15:07 → 3MHU 22:19
PROVIDERS: ADMIT Psychiatry & Neurology Psychiatry; ATTEND Psychiatry & Neurology Psychiatry
DX: F32.A Depression, unspecified (principal); F10.239 Alcohol dependence with withdrawal, unspecified; F23 Brief psychotic disorder; F10.229 Alcohol dependence with intoxication, unspecified; F12.90 Cannabis use, unspecified, uncomplicated; F17.200 Nicotine dependence, unspecified, uncomplicated; F31.9 Bipolar disorder, unspecified; F41.9 Anxiety disorder, unspecified; F60.3 Borderline personality disorder; G47.00 Insomnia, unspecified; S61.419A Laceration without foreign body of unspecified hand, initial encounter; W22.09XA Striking against other stationary object, initial encounter; X78.0XXA Intentional self-harm by sharp glass, initial encounter; Z79.899 Other long term (current) drug therapy; Z20.822 Contact with and (suspected) exposure to COVID-19
CPT/HCPCS: 80053; 80306; 81025; 82075; 84443; 85025; 87635; 99285

== ENCOUNTER 2022-09-01 14:40 | Inpatient (IN) | payer MEDICAID, OTHER ==
[2022-09-01] MEDS ORDERED: HALOPERIDOL LACTATE 5 MG/ML 1 ML VIAL IM STA (14:42)
[2022-09-01] MEDS ORDERED: LORazepam 2 MG/ML INJ IM STA ×2 (14:42→15:52)
--- NOTE | 2022-09-01 15:25 | ED ---
General Adult HPI - General Stated complaint: Psychiatric Symptoms Time Seen by Provider: 09/01/22 14:41 Source: patient, RN notes reviewed Mode of arrival: ambulatory Limitations: no limitations - History of Present Illness Initial comments: 26-year-old female presents emergency Department with police for alcohol intoxication, psychiatric evaluation. Patient has been admitted psychiatric facility several times she states she's been drinking large amount of alcohol today she was acting belligerent, threatening people and drain herself. Patient was brought here for evaluation. - Related Data Home Medications Medication Instructions Recorded Confirmed Multivitamins, Thera [Multivitamin 1 tab PO DAILY 07/05/22 09/02/22 (formulary)] Previous Rx's Medication Instructions Recorded Folic Acid 1 mg PO DAILY 30 Days tab 05/27/22 Thiamine [Vitamin B-1] 100 mg PO DAILY 30 Days tab 05/27/22 ARIPiprazole [Abilify] 5 mg PO DAILY 30 Days #30 tab 09/05/22 Acamprosate Calcium [Campral] 666 mg PO TID 30 Days #180 tab 09/05/22 DULoxetine HCL [Cymbalta] 60 mg PO HS 30 Days #30 cap 09/05/22 Prazosin [Minipress] 2 mg PO HS 30 Days #60 cap 09/05/22 traZODone HCL 150 mg PO HS 30 Days #30 tablet 09/05/22 Allergies Allergy/AdvReac Type Severity Reaction Status Date / Time lamotrigine [From Lamictal] Allergy Astorga-Yannick Verified 09/02/22 02:08 Syndrome lithium Allergy Astorga-Yannick Verified 09/02/22 02:08 Syndrome Sulfa (Sulfonamide Allergy Astorga-Yannick Verified 09/02/22 02:08 Antibiotics) Syndrome Review of Systems ROS Statement: Those systems with pertinent positive or pertinent negative responses have been documented in the HPI. ROS Other: All systems not noted in ROS Statement are negative. Past Medical History Past Medical History: Unable to Obtain Additional Past Medical History / Comment(s): lupus History of Any Multi-Drug Resistant Organisms: Unobtainable Past Surgical History: No Surgical Hx Reported Smoking Status: Light tobacco smoker - Past Family History Mother Family Medical History: Hypertension General Exam Limitations: no limitations General appearance: alert, in no apparent distress, appears intoxicated Head exam: Present: atraumatic, normocephalic, normal inspection Eye exam: Present: normal appearance, PERRL, EOMI. Absent: scleral icterus, conjunctival injection, periorbital swelling ENT exam: Present: normal exam, normal oropharynx, mucous membranes moist Neck exam: Present: normal inspection, full ROM. Absent: tenderness, meningismus, lymphadenopathy Respiratory exam: Present: normal lung sounds bilaterally. Absent: respiratory distress, wheezes, rales, rhonchi, stridor Cardiovascular Exam: Present: regular rate, normal rhythm, normal heart sounds. Absent: systolic murmur, diastolic murmur, rubs, gallop, clicks Neurological exam: Present: alert Psychiatric exam: Present: agitated Skin exam: Present: warm, dry, intact, normal color. Absent: rash Course Vital Signs 09/01/22 09/01/22 14:51 21:40 Temperature 98.9 F Pulse Rate 118 H 124 H Respiratory 18 20 Rate Blood Pressure 120/80 132/79 O2 Sat by Pulse 98 95 Oximetry Procedures - Restraint - Face to Face Restraint Occurrence 1 Patient's Immediate Situation: Endangers self safety, Endangers staff safety Patient's Reaction to the Intervention: Uncooperative, Belligerent Patient's Medical & Behavioral Condition: Awake, Alert, Agitated Need to Continue or Terminate Restraint or Seclusion: Continue Face to Face Eval of Restraint Date: 09/01/22 Face to Face Eval of Restraint Time: 14:46 Medical Decision Making - Medical Decision Making Was pt. sent in by a medical professional or institution (, PA, TELEPHONE DIRECTORY DISTRIBUTOR DRIVER, urgent care, hospital, or care home...) When possible be specific @ -No Did you speak to anyone other than the patient for history (EMS, parent, family, police, friend...)? What history was obtained from this source @ -No Did you review nursing and triage notes (agree or disagree)? Why? @ -I reviewed and agree with nursing and triage notes Were old charts reviewed (outside hosp., previous admission, EMS record, old EKG, old radiological studies, urgent care reports/EKG's, care home records)? Report findings @ -No old charts were reviewed Differential Diagnosis (chest pain, altered mental status, abdominal pain women, abdominal pain men, vaginal bleeding, weakness, fever, dyspnea, syncope, headache, dizziness, GI bleed, back pain, seizure, CVA, palpatations, mental health, musculoskeletal)? @ -[Depression, suicidal, anxiety, homicidal, alcohol intoxication EKG interpreted by me (3pts min.). @ -As above X-rays interpreted by me (1pt min.). @ -None done CT interpreted by me (1pt min.). @ -None done U/S interpreted by me (1pt. min.). @ -None done What testing was considered but not performed or refused? (CT, X-rays, U/S, labs)? Why? @ -None What meds were considered but not given or refused? Why? @ -None Did you discuss the management of the patient with other professionals (professionals i.e. DrNestor, PA, TELEPHONE DIRECTORY DISTRIBUTOR DRIVER, lab, RT, psych nurse, nephrology social worker, technician's helper, teacher, forest fire management officer, case investigator)? Give summary @ -EPS and psychiatry who evaluated the patient Was smoking cessation discussed for >3mins.? @ -No Was critical care preformed (if so, how long)? @ -No Were there social determinants of health that impacted care today? How? (Homelessness, low income, unemployed, alcoholism, drug addiction, transportation, low edu. Level, literacy, decrease access to med. care, prison, rehab)? @ -No Was there de-escalation of care discussed even if they declined (Discuss DNR or withdrawal of care, Hospice)? DNR status @ -No What co-morbidities impacted this encounter? (DM, HTN, Smoking, COPD, CAD, Cancer, CVA, ARF, Chemo, Hep., AIDS, mental health diagnosis, sleep apnea, morbid obesity)? @ -None Was patient admitted / discharged? Hospital course, mention meds given and route, prescriptions, significant lab abnormalities, going to OR and other p ertinent info. @ -Admitted to [facility] for psychiatric treatment Undiagnosed new problem with uncertain prognosis? @ -No Drug Therapy requiring intensive monitoring for toxicity (Heparin, Nitro, Insulin, Cardizem)? @ -No Were any procedures done? @ -No Diagnosis/symptom? @ -Depression, suicidal ideation, alcohol intoxication Acute, or Chronic, or Acute on Chronic? @ -Acute Uncomplicated (without systemic symptoms) or Complicated (systemic symptoms)? @ -Uncomplicated Side effects of treatment? @ -No Exacerbation, Progression, or Severe Exacerbation? @ -No Poses a threat to life or bodily function? How? (Chest pain, USA, MA, pneumonia, PE, COPD, DKA, ARF, appy, cholecystitis, CVA, Diverticulitis, Homicidal, Suicidal, threat to staff... and all critical care pts) @ -No - Lab Data Result diagrams: 09/03/22 07:48 09/03/22 07:48 Lab Results 09/01/22 09/01/22 09/01/22 Range/Units 01:50 03:00 21:34 Urine Color Urine Appearance (Clear) Urine pH (5.0-8.0) Ur Specific [place] (1.001-1.035) Urine Protein (Negative) Urine Glucose (UA) (Negative) Urine Ketones (Negative) Urine Blood (Negative) Urine Nitrite (Negative) Urine Bilirubin (Negative) Urine Urobilinogen (<2.0) mg/dL Ur Leukocyte Esterase (Negative) Urine RBC (0-5) /hpf Urine WBC (0-5) /hpf Ur Squamous Epith Cells (0-4) /hpf Urine Bacteria (None) /hpf Hyaline Casts (0-2) /lpf Urine Mucus (None) /hpf Urine HCG, Qual Not Detected (Not Detectd) Urine Opiates Screen Not Detected (NotDetected) Ur Oxycodone Screen Not Detected (NotDetected) Urine Methadone Screen Not Detected (NotDetected) Ur Propoxyphene Screen Not Detected (NotDetected) Ur Barbiturates Screen Not Detected (NotDetected) U Tricyclic Antidepress Not Detected (NotDetected) Ur Phencyclidine Scrn Not Detected (NotDetected) Ur Amphetamines Screen Not Detected (NotDetected) U Methamphetamines Scrn Not Detected (NotDetected) U Benzodiazepines Scrn Detected H (NotDetected) Urine Cocaine Screen Not Detected (NotDetected) U Marijuana (THC) Screen Detected H (NotDetected) Coronavirus (PCR) Not Detected (Not Detectd) 09/01/22 Range/Units 21:34 Urine Color Yellow Urine Appearance Clear (Clear) Urine pH 5.0 (5.0-8.0) Ur Specific [place] 1.024 (1.001-1.035) Urine Protein 1+ H (Negative) Urine Glucose (UA) Negative (Negative) Urine Ketones 3+ H (Negative) Urine Blood Negative (Negative) Urine Nitrite Negative (Negative) Urine Bilirubin Negative (Negative) Urine Urobilinogen <2.0 (<2.0) mg/dL Ur Leukocyte Esterase Negative (Negative) Urine RBC 1 (0-5) /hpf Urine WBC 2 (0-5) /hpf Ur Squamous Epith Cells 3 (0-4) /hpf Urine Bacteria Rare H (None) /hpf Hyaline Casts 60 H (0-2) /lpf Urine Mucus Occasional H (None) /hpf Urine HCG, Qual (Not Detectd) Urine Opiates Screen (NotDetected) Ur Oxycodone Screen (NotDetected) Urine Methadone Screen (NotDetected) Ur Propoxyphene Screen (NotDetected) Ur Barbiturates Screen (NotDetected) U Tricyclic Antidepress (NotDetected) Ur Phencyclidine Scrn (NotDetected) Ur Amphetamines Screen (NotDetected) U Methamphetamines Scrn (NotDetected) U Benzodiazepines Scrn (NotDetected) Urine Cocaine Screen (NotDetected) U Marijuana (THC) Screen (NotDetected) Coronavirus (PCR) (Not Detectd) Disposition Clinical Impression: Major depress dis, severe, Alcohol intoxication, Suicidal ideation Disposition: ADMITTED IP TO THIS [facility] Condition: Stable
[2022-09-01 22:23] LABS: Amphetamine Screen,Urine Not Detected (NotDetected); Barbiturate Screen,Urine Not Detected (NotDetected); Benzodiazepines Screen,Urine Detected (NotDetected); Cocaine Screen,Urine Not Detected (NotDetected); Methadone Screen, Urine Not Detected (NotDetected); Opiate Screen,Urine Not Detected (NotDetected); Oxycodone Screen, Urine Not Detected (NotDetected); Phencyclidine Screen,Urine Not Detected (NotDetected); Tricyclic Antidepressant,Urine Not Detected (NotDetected); Urn Cannabinoid Scrn Detected (NotDetected)
[2022-09-02] MEDS ORDERED: HALOPERIDOL LACTATE 5 MG/ML 1 ML VIAL IM PRN (02:52)
[2022-09-02] MEDS ORDERED: MAG HYDROX/AL HYDROX/SIMETH 30 ML CUP PO PRN (02:52)
[2022-09-02] MEDS ORDERED: MAGNESIUM HYDROXIDE 2,400 MG/10 ML CUP PO PRN (02:52)
[2022-09-02] MEDS ORDERED: LORazepam 1 MG TAB PO PRN (02:52)
[2022-09-02] MEDS ORDERED: ACETAMINOPHEN TAB 325 MG TAB PO PRN (02:52)
[2022-09-02] MEDS ORDERED: LORazepam 2 MG/ML INJ IM PRN (03:02)
[2022-09-02] MEDS ORDERED: haloperidoL 5 MG TAB PO PRN (03:03)
[2022-09-02] MEDS: LORazepam 1 MG TAB PO PRN ×3 (03:39→19:58)
[2022-09-02 04:05] LABS: Appearance,Urine Clear (Clear); Bacteria,Urine Rare /hpf; Bilirubin,Urine Negative (Negative); Blood,Urine Negative (Negative); Color,Urine Yellow; Glucose,Urine (UA) Negative (Negative); Hyaline Casts,Urine 60 /lpf (0-2); Ketones,Urine 3+ (Negative); Leukocyte Esterase,Urine Negative (Negative); Mucus,Urine Occasional /hpf; Nitrite,Urine Negative (Negative); Protein,Urine 1+ (Negative); RBC,Urine 1 /hpf (0-5); Specific Gravity,Urine 1.024 (1.001-1.035); Squamous Epithelial Cell,Urine 3 /hpf (0-4); Urobilinogen,Urine <2.0 mg/dL (<2.0); WBC,Urine 2 /hpf (0-5)
[2022-09-02 06:30] VITALS: RESP 16
[2022-09-02] MEDS: NICOTINE 14MG/24HR PATCH TRANSDERM SCH (08:24)
[2022-09-02] MEDS: ACAMPROSATE CALCIUM 333 MG TABLET.DR PO SCH ×3 (08:25→19:56)
[2022-09-02] MEDS: THIAMINE 100 MG TAB PO SCH (08:25)
[2022-09-02] MEDS: MULTIVITAMINS, THERA 1 EACH TAB PO SCH (08:25)
[2022-09-02] MEDS: FOLIC ACID 1 MG TAB PO SCH (08:25)
[2022-09-02] MEDS ORDERED: chlordiazePOXIDE 25 MG CAP PO SCH (09:00)
[2022-09-02] MEDS ORDERED: busPIRone HCl 10 MG TAB PO SCH (09:00)
[2022-09-02] MEDS ORDERED: ARIPiprazole 5 MG TAB PO STA (10:21)
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
[2022-09-02] MEDS: traZODone HCL 50 MG TAB PO SCH (19:57)
[2022-09-02] MEDS: DULoxetine HCL 60 MG CAPSULE.DR PO SCH (19:57)
[2022-09-02] MEDS ORDERED: PRAZOSIN 1 MG CAP PO SCH (21:00)
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
[2022-09-03] MEDS: FOLIC ACID 1 MG TAB PO SCH (08:13)
[2022-09-03] MEDS: THIAMINE 100 MG TAB PO SCH (08:13)
[2022-09-03] MEDS: ACAMPROSATE CALCIUM 333 MG TABLET.DR PO SCH ×3 (08:13→20:26)
[2022-09-03] MEDS: ARIPiprazole 5 MG TAB PO SCH (08:14)
[2022-09-03] MEDS: MULTIVITAMINS, THERA 1 EACH TAB PO SCH (08:14)
[2022-09-03] MEDS: NICOTINE 14MG/24HR PATCH TRANSDERM SCH (08:14)
[2022-09-03 08:42] LABS: ALT 47 U/L (4-34); AST 39 U/L (14-36); African American GFR (CKD) >90 (>60 ml/min/1.73 sqM); Albumin 4.9 g/dL (3.5-5.0); Alkaline Phosphatase 69 U/L (38-126); Anion Gap 12 mmol/L; Bilirubin, Delta 0.4 mg/dL (0.0-0.2); Bilirubin,Unconjugated 0.4 mg/dL (0.0-1.1); Blood Urea Nitrogen 8 mg/dL (7-17); Calcium 9.6 mg/dL (8.4-10.2); Carbon Dioxide 25 mmol/L (22-30); Chloride 96 mmol/L (98-107); Glucose 92 mg/dL (74-99); Non-African American GFR(CKD) >90 (>60 ml/min/1.73 sqM); Potassium 4.1 mmol/L (3.5-5.1); Sodium 133 mmol/L (137-145); Total Bilirubin 0.8 mg/dL (0.2-1.3); Total Protein 7.9 g/dL (6.3-8.2)
[2022-09-03 09:00] LABS: HCT 39.6 % (34.0-46.0); HGB 13.3 gm/dL (11.4-16.0); MCH 30.4 pg (25.0-35.0); MCHC 33.7 g/dL (31.0-37.0); MCV 90.2 fL (80.0-100.0); Mean Platelet Volume 7.9; Platelet Count 245 k/uL (150-450); RBC 4.39 m/uL (3.80-5.40); RDW 13.9 % (11.5-15.5); WBC 4.5 k/uL (3.8-10.6)
[2022-09-03 14:06] LABS: Eosinophils # (M) 0.18 k/uL (0-0.7); Lymphocytes # (M) 1.53 k/uL (1.0-4.8); Monocytes # (M) 0.27 k/uL (0-1.0); Neutrophils # (M) 2.52 k/uL (1.3-7.7); Neutrophils % (M) 56 %; Nucleated Red Blood Cells 0 /100 WBC (0-0); Total Cells Counted 100
[2022-09-03 14:07] LABS: RBC Morphology Normal
--- NOTE | 2022-09-03 14:13 | P.PN ---
Progress Note - Text Progress Note Date: 09/03/22 Interval History: Patient was seen bedside this afternoon. She says that her mood has been "fine". She has been reading a book today to "distract myself." She discusses the circumstances leading to hospitalization. She asks why the BuSpar was not restarted because she says this is helpful for her anxiety. She says that her boyfriend plans to visit her. Patient continues to deny access to firearms. She reports trouble sleeping and nightmares last night. She is agreeable with increase in Minipress and currently denies any dizziness. She endorses good appetite and reduced energy. At this time patient denies any suicidal or homicidal ideations, intent or plan. Patient denies any auditory, visual hallucinations and denies any paranoia or delusions. Patient denies any side effects from the medications and has been compliant with meds. Mental Status Exam: General Appearance: Patient appears to be stated age is alert, directable, and attempts to cooperate. Patient appears to have fair hygiene and grooming. Behavior: Patient is seated without any agitated behavior. Eye contact is appropriate Speech: Patient's speech is fluent and nonpressured. Mood/Affect: Patient reports their mood is "fine", affect is congruent Suicidality/Homicidality: Patient denies any suicidal or homicidal ideation. Perceptions: Patient denies any visual hallucinations and denies any auditory hallucinations Though content/process: There is no evidence of any delusional thought content and thought process is linear and goal-directed. Memory and concentration: AOX3, grossly intact for the purposes of this session. Judgment and insight: poor Assessment Unspecified depressive disorder Posttraumatic stress disorder Borderline personality disorder Alcohol use disorder, severe Cannabis use disorder Nicotine dependence PLAN: -Patient is admitted under deferral status to MHU for stabilization of psychiatric symptoms and safety. -Medications : Continue Abilify 5 mg by mouth daily for mood augmentation Resume Buspar at 15 mg BID Cymbalta 60 mg by mouth at bedtime for depression Trazodone 150 mg by mouth at bedtime for insomnia Increase Prazosin to 2 mg by mouth at bedtime for PTSD related nightmares Campral 666 mg TID for alcohol abstinence -Ativan and Haldol PRN for agitation/aggression -Patient was counselled on substance abuse and desired to cut back on use -Patient was informed of the risks, benefits and side effects of the medication and patient verbally consented to taking the medications. Patient signed med consent form and was placed in chart. -Internal Medicine consult to perform medical evaluation and physical. -NRT - nicotine patch -SW on board for discharge planning. Encourage patient to participate in groups to work on coping skills.
[2022-09-03 20:19] LABS: LDL Cholesterol,Calculated 180.4 mg/dL (0.0-131.0)
[2022-09-03] MEDS: DULoxetine HCL 60 MG CAPSULE.DR PO SCH (20:26)
[2022-09-03] MEDS: PRAZOSIN 1 MG CAP PO SCH (20:26)
[2022-09-03] MEDS: busPIRone HCl 5 MG TAB PO SCH (20:27)
[2022-09-03] MEDS: traZODone HCL 50 MG TAB PO SCH (20:27)
[2022-09-04] MEDS: NICOTINE 14MG/24HR PATCH TRANSDERM SCH (08:24)
[2022-09-04] MEDS: ARIPiprazole 5 MG TAB PO SCH (08:25)
[2022-09-04] MEDS: FOLIC ACID 1 MG TAB PO SCH (08:25)
[2022-09-04] MEDS: MULTIVITAMINS, THERA 1 EACH TAB PO SCH (08:25)
[2022-09-04] MEDS: busPIRone HCl 5 MG TAB PO SCH ×2 (08:25→20:10)
[2022-09-04] MEDS: THIAMINE 100 MG TAB PO SCH (08:25)
[2022-09-04] MEDS: ACAMPROSATE CALCIUM 333 MG TABLET.DR PO SCH ×3 (08:26→20:10)
--- NOTE | 2022-09-04 12:59 | P.PN ---
Progress Note - Text Progress Note Date: 09/04/22 Interval History: Patient was seen bedside this afternoon. She says that her mood has been "goo d". She reports decreased anxiety and improved mood. She says that she has been doing well with the BuSpar. She denies nightmares and says that she has been able to sleep better last night. She denies dizziness with the increased dose of Minipress. She endorses good appetite and energy. However, patient was noted to be laying down this morning but said she was participating in groups earlier today. She says she would be interested in a [facility] sobriety. She says she would like to be going here before considering going to [place]. At this time patient denies any suicidal or homicidal ideations, intent or plan. Patient denies any auditory, visual hallucinations and denies any paranoia or delusions. Patient denies any side effects from the medications and has been compliant with meds. Mental Status Exam: General Appearance: Patient appears to be stated age is alert, directable, and attempts to cooperate. Patient appears to have fair hygiene and grooming. Behavior: Patient is laying down without any agitated behavior. Eye contact is appropriate Speech: Patient's speech is fluent and nonpressured. Mood/Affect: Patient reports their mood is "good", affect is congruent Suicidality/Homicidality: Patient denies any suicidal or homicidal ideation. Perceptions: Patient denies any visual hallucinations and denies any auditory hallucinations Though content/process: There is no evidence of any delusional thought content and thought process is linear and goal-directed. Memory and concentration: AOX3, grossly intact for the purposes of this session. Judgment and insight: poor Assessment Unspecified depressive disorder Posttraumatic stress disorder Borderline personality disorder Alcohol use disorder, severe Cannabis use disorder Nicotine dependence PLAN: -Patient is admitted under deferral status to MHU for stabilization of psychiatric symptoms and safety. -Medications : Continue Abilify 5 mg by mouth daily for mood augmentation Continue Buspar 15 mg BID Cymbalta 60 mg by mouth at bedtime for depression Trazodone 150 mg by mouth at bedtime for insomnia Prazosin 2 mg by mouth at bedtime for PTSD related nightmares Campral 666 mg TID for alcohol abstinence -Ativan and Haldol PRN for agitation/aggression -Patient was counselled on substance abuse and desired to cut back on use -Patient was informed of the risks, benefits and side effects of the medication and patient verbally consented to taking the medications. Patient signed med consent form and was placed in chart. -Internal Medicine consult to perform medical evaluation and physical. -NRT - nicotine patch -SW on board for discharge planning. Encourage patient to participate in groups to work on coping skills.
[2022-09-04] MEDS: PRAZOSIN 1 MG CAP PO SCH (20:10)
[2022-09-04] MEDS: DULoxetine HCL 60 MG CAPSULE.DR PO SCH (20:10)
[2022-09-04] MEDS: traZODone HCL 50 MG TAB PO SCH (20:11)
[2022-09-05 06:23] VITALS: BP 101/59; PULSE 94; TEMP 97.9
[2022-09-05] MEDS: ACAMPROSATE CALCIUM 333 MG TABLET.DR PO SCH (08:26)
[2022-09-05] MEDS: NICOTINE 14MG/24HR PATCH TRANSDERM SCH (08:27)
[2022-09-05] MEDS: ARIPiprazole 5 MG TAB PO SCH (08:28)
[2022-09-05] MEDS: busPIRone HCl 5 MG TAB PO SCH (08:28)
[2022-09-05] MEDS: THIAMINE 100 MG TAB PO SCH (08:28)
[2022-09-05] MEDS: FOLIC ACID 1 MG TAB PO SCH (08:28)
[2022-09-05] MEDS: MULTIVITAMINS, THERA 1 EACH TAB PO SCH (08:28)
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
== END 2022-09-05 13:28 | disposition home or self-care (01) | DRG 775 ==
LOC: EC 14:40 → 3MHU 09-02 02:50
PROVIDERS: ADMIT Psychiatry & Neurology Psychiatry; ATTEND Psychiatry & Neurology Psychiatry
DX: F10.24 Alcohol dependence with alcohol-induced mood disorder (principal); F12.10 Cannabis abuse, uncomplicated; F10.229 Alcohol dependence with intoxication, unspecified; F32.A Depression, unspecified; F43.10 Post-traumatic stress disorder, unspecified; F60.3 Borderline personality disorder; G47.00 Insomnia, unspecified; R45.850 Homicidal ideations; R45.851 Suicidal ideations; Z56.0 Unemployment, unspecified; Z79.899 Other long term (current) drug therapy; Z28.310 Unvaccinated for COVID-19; Z20.822 Contact with and (suspected) exposure to COVID-19; Z28.21 Immunization not carried out because of patient refusal; Z88.2 Allergy status to sulfonamides; Z88.8 Allergy status to other drugs, medicaments and biological substances; Z71.41 Alcohol abuse counseling and surveillance of alcoholic; Z71.6 Tobacco abuse counseling; Z71.51 Drug abuse counseling and surveillance of drug abuser
CPT/HCPCS: 80053; 80061; 80306; 81001; 81025; 82075; 82248; 83036; 84443; 85025; 87635